=== PATIENT | female | born 1960 | race American Indian/Alaskan Native ===

== ENCOUNTER 2016-10-30 17:39 | Inpatient (IN) | payer OTHER ==
[2016-10-30] MEDS ORDERED: ZOFRAN ODT PO ONE (18:14)
--- NOTE | 2016-10-30 18:14 | Emergency Department Report ---
Chief Complaint: Nausea/Vomiting/Diarrhea Stated Complaint: POSS FOOD POISONING Time Seen by Provider: 10/30/16 18:09 - HPI History of Present Illness: PT c/o n/v/d for two days. Pt states she thinks has food poisoning. - ROS Review of Systems: + n/v/d + abd pain - Exam Physical Exam: pt is tachycardic pt has LUQ and RUQ tenderness to abd abd is soft MSE screening note: Focused history and physical exam performed. Due to findings the following was ordered: labs ED Disposition for MSE Condition: Stable
[2016-10-30 18:37] LABS: Basophils % (Auto) 0.2 % (0.0-1.8); Hematocrit 45.9 % (30.3-42.9); Mean Corpuscular HGB Conc 33 % (30-34); Mean Corpuscular Hemoglobin 27 pg (28-32); Mean Corpuscular Volume 83 fl (79-97); Platelet Count 396 K/mm3 (140-440); Red Blood Count 5.52 M/mm3 (3.65-5.03); Red Cell Distribution Width 15.5 % (13.2-15.2); White Blood Count 10.6 K/mm3 (4.5-11.0)
[2016-10-30 18:55] LABS: Albumin 3.6 g/dL (3.9-5); Albumin/Globulin Ratio 0.9 %; BUN/Creatinine Ratio 18.09; Bilirubin,Total 0.7 mg/dL (0.1-1.2); Calcium 8.5 mg/dL (8.4-10.2); Total Protein 7.4 g/dL (6.3-8.2)
[2016-10-30 18:56] LABS: Chloride 97.7 mmol/L (98-107); Potassium 3.3 mmol/L (3.6-5.0)
[2016-10-31] MEDS ORDERED: MORPHINE IV ONE (06:21)
[2016-10-31] MEDS ORDERED: NACL 0.9% 1000 ML 1,000 ML IV ONE (06:21)
[2016-10-31] MEDS ORDERED: ZOFRAN IV ONE (06:21)
--- NOTE | 2016-10-31 06:59 | Cat Scan Report ---
FINAL REPORT EXAM: CT ABDOMEN PELVIS WO CON HISTORY: abd pain ,n,v,d TECHNIQUE: Noncontrast CT of the abdomen and pelvis performed. No IV or gastrointestinal contrast was administered. Coronal and sagittal reformatted images were obtained. PRIORS: None. FINDINGS: There is some dependent atelectasis at the lung bases. There is cholelithiasis. There is a 3.4 cm low-density left renal lesion which is likely a cyst. There is a 1.2 cm right adrenal gland nodule, likely a benign adenoma. Within the limitations of a non-enhanced study, the visualized liver, spleen, pancreas, left adrenal gland and right kidney demonstrate no significant abnormalities. There is no abdominal aortic aneurysm. There is no evidence of intestinal obstruction. The appendix is normal. There is descending colon abnormal wall thickening and pericolonic inflammation. This is consistent with colitis. There is no abscess or free air seen.. There is an enlarged fibroid uterus. The bladder is unremarkable. IMPRESSION: Colitis involving the descending colon. Cholelithiasis. Enlarged fibroid uterus. 12 mm right adrenal gland nodule is probably a benign adenoma.
[2016-10-31 07:01] LABS: Bilirubin,Urine NEG (Negative); Blood,Urine SM (Negative); Ketones,Urine NEG (Negative); Leukocyte Esterase,Urine NEG (Negative); Mucus,Urine FEW /HPF; Nitrite,Urine NEG (Negative); Protein,Urine <15 mg/dL mg/dL (Negative); Urobilinogen,Urine < 2.0 mg/dL (<2.0)
--- NOTE | 2016-10-31 07:06 | Emergency Department Report ---
ED N/V/D HPI - General Chief complaint: Nausea/Vomiting/Diarrhea Stated complaint: POSS FOOD POISONING Time Seen by Provider: 10/30/16 18:09 Source: patient, family Mode of arrival: Wheelchair Limitations: No Limitations - History of Present Illness Initial comments: 56-year-old female with a past medical history of hypertension in the past (not currently on BP medication) presents to the hospital complains of nausea, vomiting, diarrhea, and abdominal pain 2 days. On average patient has 2 episodes of vomiting per day and much more frequent episodes of diarrhea. It just started after eating a chili dog. Patient completed generalized abdominal pain but greatest in the upper abdomen. Previous history of 4. Denies fever, recent travel, sick contacts or previous history of renal disease. - Related Data Previous Rx's Medication Instructions Recorded Last Taken Type amLODIPine [Norvasc] 5 mg PO DAILY #30 tab 05/12/14 Unknown Rx Allergies Allergy/AdvReac Type Severity Reaction Status Date / Time No Known Allergies Allergy Verified 05/11/14 23:56 ED Review of Systems ROS: Stated complaint: POSS FOOD POISONING Other details as noted in HPI Comment: All other systems reviewed and negative Other: Constitutional: No fevers chills Eyes: No eye pain visual changes ENT: No ear pain or throat pain Neck: Denies pain Respiratory: Denies cough wheezing shortness of breath Cardiovascular: Denies chest pain, palpitations, syncope GI: As per HPI : Denies dysuria Musculoskeletal: Denies back pain Skin: Denies rash, lesions, erythema Neurologic: Denies headache, numbness, weakness Psychiatric: Denies suicidal ideation, hallucinations ED Past Medical Hx - Past Medical History Previous Medical History?: Yes Hx Hypertension: Yes - Surgical History Past Surgical History?: Yes Additional Surgical History: x4 - Social History Smoking Status: Never Smoker Substance Use Type: None - Medications Home Medications: Home Medications Medication Instructions Recorded Confirmed Last Taken Type amLODIPine [Norvasc] 5 mg PO DAILY #30 tab 05/12/14 Unknown Rx ED Physical Exam - General Limitations: No Limitations - Other Other exam information: General: No limitations, patient is alert in no acute distress Head exam: Atraumatic, normocephalic Eyes exam: Normal appearance, nonicteric sclera ENT: Moist mucous membrane, normal oropharynx Neck exam: Normal inspection, full range of motion Respiratory exam: Clear to auscultation bilateral, no wheezes, rales, crackles Cardiovascular: Mild tachycardia, regular rhythm Abdomen: Soft, nondistended, maximum tenderness to left upper quadrant, left lower quadrant whenever generalized tenderness with increased bowel sounds Extremity: Full range of motion normal inspection no deformity Back: Normal Inspection, full range of motion, no tenderness Neurologic: Alert, oriented x3, cranial nerves intact, no motor or sensory deficit Psychiatric: normal affect, normal mood Skin: Warm, dry, intact ED Course Vital Signs 10/30/16 10/30/16 18:12 20:11 Temperature 97.5 F L 97.5 F L Pulse Rate 120 H 107 H Respiratory 16 16 Rate Blood Pressure 116/71 111/74 O2 Sat by Pulse 96 97 Oximetry - Reevaluation(s) Reevaluation #1: 10/31/16 07:08 Meds received in the ED: Normal saline 1 L Zofran 4 mg Morphine 4 mg By mouth potassium 10/31/16 07:15 Levaquin 750mg po flagyl 500mg Po 10/31/16 07:15 No vomiting in the ED - Consultations Consultation #1: 10/31/16 07:[address] 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0 H (0.0-0.8) K/mm3 Eos # 0.0 (0.0-0.4) K/mm3 Baso # 0.0 (0.0-0.1) K/mm3 Seg Neutrophils % 81.7 H (40.0-70.0) % Seg Neutrophils # 8.7 H (1.8-7.7) K/mm3 Sodium 139 (137-145) mmol/L Potassium 3.3 L (3.6-5.0) mmol/L Chloride 97.7 L (98-107) mmol/L Carbon Dioxide 21 L (22-30) mmol/L Anion Gap 24 mmol/L BUN 38 H (7-17) mg/dL Creatinine 2.1 H (0.7-1.2) mg/dL Estimated GFR 30 ml/min BUN/Creatinine Ratio 18.09 % Glucose 262 H (65-100) mg/dL Hemoglobin A1c 5.9 (4-6) % Calcium 8.5 (8.4-10.2) mg/dL Total Bilirubin 0.70 (0.1-1.2) mg/dL AST 12 (5-40) units/L ALT 11 (7-56) units/L Alkaline Phosphatase 57 (35-129) units/L Total Protein 7.4 (6.3-8.2) g/dL Albumin 3.6 L (3.9-5) g/dL Albumin/Globulin Ratio 0.9 % Lipase 10 L (13-60) units/L Urine Color (Yellow) Urine Turbidity (Clear) Urine pH (5.0-7.0) Ur Specific [place] (1.003-1.030) Urine Protein (Negative) mg/dL Urine Glucose (UA) (Negative) mg/dL Urine Ketones (Negative) mg/dL Urine Blood (Negative) Urine Nitrite (Negative) Urine Bilirubin (Negative) Urine Urobilinogen (<2.0) mg/dL Ur Leukocyte Esterase (Negative) Urine WBC (Auto) (0.0-6.0) /HPF Urine RBC (Auto) (0.0-6.0) /HPF U Epithel Cells (Auto) (0-13.0) /HPF Hyaline Casts /LPF Urine Mucus /HPF 10/31/ Range/Units 06:46 WBC (4.5-11.0) K/mm3 RBC (3.65-5.03) M/mm3 Hgb (10.1-14.3) gm/dl Hct (30.3-42.9) % MCV (79-97) fl MCH (28-32) pg MCHC (30-34) % RDW (13.2-15.2) % Plt Count (140-440) K/mm3 Lymph % (Auto) (13.4-35.0) % Crisp % (Auto) (0.0-7.3) % Eos % (Auto) (0.0-4.3) % Baso % (Auto) (0.0-1.8) % Lymph # (1.2-5.4) K/mm3 Crisp # (0.0-0.8) K/mm3 Eos # (0.0-0.4) K/mm3 Baso # (0.0-0.1) K/mm3 Seg Neutrophils % (40.0-70.0) % Seg Neutrophils # (1.8-7.7) K/mm3 Sodium (137-145) mmol/L Potassium (3.6-5.0) mmol/L Chloride (98-107) mmol/L Carbon Dioxide (22-30) mmol/L Anion Gap mmol/L BUN (7-17) mg/dL Creatinine (0.7-1.2) mg/dL Estimated GFR ml/min BUN/Creatinine Ratio % Glucose (65-100) mg/dL Hemoglobin A1c (4-6) % Calcium (8.4-10.2) mg/dL Total Bilirubin (0.1-1.2) mg/dL AST (5-40) units/L ALT (7-56) units/L Alkaline Phosphatase (35-129) units/L Total Protein (6.3-8.2) g/dL Albumin (3.9-5) g/dL Albumin/Globulin Ratio % Lipase (13-60) units/L Urine Color Yellow (Yellow) Urine Turbidity Clear (Clear) Urine pH 5.0 (5.0-7.0) Ur Specific [place] 1.014 (1.003-1.030) Urine Protein <15 mg/dl (Negative) mg/dL Urine Glucose (UA) Neg (Negative) mg/dL Urine Ketones Neg (Negative) mg/dL Urine Blood Sm (Negative) Urine Nitrite Neg (Negative) Urine Bilirubin Neg (Negative) Urine Urobilinogen < 2.0 (<2.0) mg/dL Ur Leukocyte Esterase Neg (Negative) Urine WBC (Auto) 5.0 (0.0-6.0) /HPF Urine RBC (Auto) 6.0 (0.0-6.0) /HPF U Epithel Cells (Auto) 3.0 (0-13.0) /HPF Hyaline Casts 9 /LPF Urine Mucus Few /HPF - Radiology Data Radiology results: report reviewed (CT abdomen and pelvis noncontrast: Colitis involving the descending colon. Cholelithiasis, enlarged fibroid uterus. 12 mm right adrenal gland nodule probably benign adenoma) - Medical Decision Making Patient be admitted to the hospital for treatment for colitis. Antibiotics initiated. Patient also has acute renal insufficiency likely secondary to dehydration. Nephrology has been consulted. Hospitalist informed. - Differential Diagnosis dehydration, colitis, gastroenteritis, food poising Critical Care Time: No Critical care attestation.: If time is entered above; I have spent that time in minutes in the direct care of this critically ill patient, excluding procedure time. ED Disposition Clinical Impression: Colitis, Vomiting, Acute renal insufficiency, Dehydration, Hypokalemia Disposition: -09 OP ADMIT IP TO THIS HOSP Is pt being admited?: Yes Condition: Stable Time of Disposition: 07:17 (Dr. Hernandez/ hospitalist)
[2016-10-31] MEDS ORDERED: K-DUR PO ONE (07:09)
[2016-10-31] MEDS ORDERED: FLAGYL PO ONE (07:14)
[2016-10-31] MEDS ORDERED: LEVAQUIN PO ONE (07:14)
--- NOTE | 2016-10-31 07:30 | Admit Criteria Form ---
Admission Criteria Documentation: GASTROENTEROLOGY GRG Clinical Indications for Admission to Inpatient Care (Place 'X' for any and all applicable criteria): Hospital admission is needed for appropriate care of the patient because of ANY ONE of the following: [ ]I. Hemoperitoneum(7) [ ]II. Ascites requiring acute treatment indicated by ANY ONE of the following( 8)(9): [ ]a) Hemodynamic instability remaining after emergency or observation level care (as appropriate) [ ]b) Peritoneal signs present (eg, abdominal rigidity, rebound tenderness, absent bowel sounds) [ ]c) Tachypnea, Hypoxemia, or other respiratory symptoms remain after emergency or observation level care (as appropriate) [ ]d) Suspected infected ascites as indicated by ANY ONE of the following: [ ]i) Temperature greater than 100 degrees F (37.8 degrees C) [ ]ii) Abdominal pain or tenderness not relieved by paracentesis [ ]iii) Systemic signs of infection (eg, elevated WBC count, fever) [ ]iv) Ascitic fluid analysis consistent with infection ( eg, elevated WBC count): [ ]v) Vital sign abnormality [ ]III. Suspected acute intra-abdominal process indicated by ANY ONE of the following(1)(2)(3)(4)(5): [ ]a) Hemodynamic instability [ ]b) Peritoneal signs present (eg, abdominal rigidity, rebound tenderness, absent bowel sounds) [ ]c) Bowel obstruction suspected (eg, severe vomiting, abdominal distension) [ ]d) Suspected mesenteric ischemia or ischemic colitis(6) [ ]e) Other signs or symptoms of acute abdominal disease (eg, severe pain, free air): [ ]IV. Severe liver disease indicated by ANY ONE of the following(8)(9)(10)(11)( 12)(13)(14): [ ]a) Acute hepatitis (eg, transaminase level greater than 1000 IU/L) [ ]b) Acute elevation of prothrombin time to more than 50% above normal or INR greater than 1.5 [ ]c) Bilirubin greater than 20 mg/dL (342 micromoles/L) (15) [ ]d) New-onset or worsening hepatic encephalopathy [ ]e) Acute liver necrosis [ ]f) Vomiting or dehydration that is severe of persistent [ ]g) Hemodynamic instability due to liver disease [ ]h) Acute renal failure [ ]i) Hepatic abscess [ ]j) Dehydration that is severe or persistent [ ]k) Hepatic hydrothorax(21) [ ]l) Other indications of severe liver disease (eg, persistent fever , ingestion of hepatotoxin) [X ]V. Severe diarrhea indicated by ANY ONE of the following(17)(18)(19)(20)(21) (22)(23): [ ]a) High fever or other high-risk infection situation [ ]b) Intractable bloody diarrhea (eg, more than 6 bloody stools per day) [ ]c) Suspected Clostridium difficile-associated diarrhea(24) [ ]d) Change in mental status that persists after emergency or observation level care (as appropriate) [ ]e) Severe dehydration (eg, greater than 9% loss of body weight in children) [ ]f) Inability to maintain hydration [ ]g) Peritoneal signs present (eg, abdominal rigidity, rebound tenderness, absent bowel sounds) [ ]h) Abdominal ischemia suspected(6) [ ]i) Hemodynamic instability that persists after emergency or observation level care (as appropriate) [ ]j) Severe electrolyte abnormalities requiring inpatient care [X ]k) Acute renal failure [ ]. Suspected toxic megacolon(5)(6) [ ]VII.Severe dysphagia indicated by ANY ONE of the following(25)(26): [ ]a) Suspected esophageal perforation or fistula(27) [ ]b) Suspected cause that requires inpatient care (eg, caustic ingestion, severe esophagitis) (28) [ ]c) Severe dehydration (eg, greater than 9% loss of body weight in children) [ ]d) Inability to manage secretions or maintain hydration [ ]e) Hemodynamic instability that persists after emergency or observation level care (as appropriate) [ ]f) Severe electrolyte abnormalities requiring inpatient care [ ]g) Acute renal failure [ ]VIII.Vomiting and ANY ONE of the following (29)(30)(31)(32): [ ]a) High fever or other high-risk infection situation [ ]b) Change in mental status that persists after emergency or observation level care (as appropriate) [ ]c) Severe dehydration (e.g., greater than 9% loss of body weight in children) [ ]d) Peritoneal signs present (e.g., abdominal rigidity, rebound tenderness, absent bowel sounds) [ ]e) Hemodynamic instability that persists after emergency or observation level care (as appropriate) [ ]f) Severe electrolyte abnormalities requiring inpatient care [ ]g) Acute renal failure [ ]h) Bowel obstruction suspected (e.g., severe vomiting, abdominal distension) [ ]i) Vomiting that is severe or persistent after medical treatment [ ]IX. Significant dehydration indicated by ANY ONE of the following(23)(24)(25) [ ]a) Clinical findings of severe dehydration indicated by ANY ONE of the following: [ ]i) Acute loss of weight from baseline (5% of body weight in adults, 9% in pediatric patients) [ ]ii) Hemodynamic instability [ ]iii) Acute renal failure [ ]iv) Serum sodium greater than 150 mEq/L (mmol/L) [ ]b) Dehydration that is persistent indicated by ALL of the following: [ ]i) Oral rehydration therapy not tolerated or insufficient to adequately correct dehydration [ ]ii) Appropriate intravenous treatment (eg, fluids) does not readily correct dehydration hours of (ie, after 12 to 24 of treatment) [ ]X. Gastroparesis and ANY ONE of the following(37)(38)(39): [ ]a) Dehydration that is severe or persistent [ ]b) Severe electrolyte abnormalities requiring inpatient care [ ]c) Acute renal failure [ ]d) Vomiting that is severe or persistent [ ]XI. Complications of transplanted liver indicated by ANY ONE of the following (40)(41): [ ]a) Acute graft rejection requiring inpatient management (eg, intravenous immunosuppression)(42) [ ]b) Failure of transplanted liver as indicated by ANY ONE of the following: [ ]i) Acute hepatitis (eg, transaminase level greater than 1000 International Units per liter (IU/L)) [ ]ii) Acute elevation of prothrombin time to more than 50% above baseline or INR greater than 1.5 [ ]iii) Bilirubin greater than 20 mg/dL (342 micromoles/L) [ ]iv) New-onset or worsening hepatic encephalopathy [ ]v) Acute elevation of serum ammonia level (eg, greater than 210 mcg/dL (150 micromoles/L)) [ ]vi) Acute liver necrosis [ ]c) Infection requiring inpatient management (eg, Hemodynamic instability, need for intravenous antimicrobial treatment)(43)(44)(45)(46)(47)(48)(49)(50) [ ]d) Other complication of transplanted liver (eg, thrombosis, autoimmune hepatitis, variceal bleeding) requiring inpatient management(51)(52) [ ]XII Complications of transplanted pancreas indicated by ANY ONE of the following(53): [ ]a) Acute graft rejection requiring inpatient management (eg, intravenous immunosuppression)(42)(54) [ ]b) Failure of transplanted pancreas as indicated by ANY ONE of the following: [ ]i) Serum amylase greater than 3 times the upper limit of normal or baseline [ ]ii) Serum lipase greater than 3 times the upper limit of normal or baseline [ ]iii) Imaging findings consistent with pancreatic inflammation or necrosis [ ]c) Infection requiring inpatient management (eg, Hemodynamic instability, need for intravenous antimicrobial treatment)(43)(44)(45)(46)(47)(48)(49)(50) [ ]d) Other complication of transplanted liver (eg, thrombosis, autoimmune hepatitis, variceal bleeding) requiring inpatient management(51)(52) [ ]X. Gastroenterology condition and ALL of the following: [ ]a) Symptom or finding for which emergency and observation care have failed or are not considered appropriate (Also use General Criteria: Observation Care as appropriate) [ ]b) Presence of ANY ONE of the following: [ ]i) A General Admission Criteria [ ]ii) A Pediatric General Admission Criteria. The original [facility] [employer] content created by [facility] [employer] has been revised. The portions of the content which have been revised are identified through the use of italic text or in bold,and [facility] has neither reviewed nor approved the modified material. All other unmodified content is copyright [facility] [employer]. Please see references footnoted in the original [facility] edition 2016 Admission Criteria Met: Yes
[2016-10-31] MEDS ORDERED: ZOFRAN IV PRN ×2 (11:25→11:33)
[2016-10-31] MEDS ORDERED: DULCOLAX PR PRN (11:25)
[2016-10-31] MEDS ORDERED: MILK OF MAGNESIA PO PRN (11:25)
--- NOTE | 2016-10-31 11:50 | History and Physical Report ---
History of Present Illness Date of examination: 10/31/16 Date of admission: 10/31/2016 Chief complaint: Abdominal pain, Nausea, Vomiting and diarrhea History of present illness: Patient is a 56 year old female with past medical history of hypertension in the past but currently she is not on BP medication.patient presented to the ED after two days of severe abdominal pain, nausea, vomiting, and diarrhea. She stated that on Friday evening after being in her usual state of health she began to experience sharp LUQ and RUQ abdominal pain that does not radiated . The pain was started after eating a chili dog and she did not take any medications to alleviate the discomfort. The abdominal pain was quickly followed by two episodes of partial diarrhea and soft stool that was trejo in color with no signs of blood. Her abdominal pain continued and she developed nausea and then vomited multiple times that evening before going to sleep. Overnight her abdominal pain worsened and she stayed in bed for most of the day on Friday. She had 2 episode of vomiting in all day but multiple episodes of diarrhea that day and did not eat anything for fear of vomiting. She was able to drink water and keep it down. By late Friday night, her pain had intensified to a 10/10 and she can take it no more and decided to come to ED. Patient denies fever, recent travel,sick contacts or previous history of renal disease Past History Past Medical History: hypertension Past Surgical History: (X4) Social history: no significant social history Family history: hypertension Medications and Allergies Allergies Allergy/AdvReac Type Severity Reaction Status Date / Time No Known Allergies Allergy Verified 05/11/14 23:56 Home Medications Medication Instructions Recorded Confirmed Last Taken Type No Known Home Medications [No 10/31/16 10/31/16 Unknown History Reported Home Medications] Active Meds: Active Medications Acetaminophen (Tylenol) 650 mg PO Q4H PRN PRN Reason: Pain MILD(1-3)/Fever >100.5/[facility] Bisacodyl (Dulcolax) 10 mg OR QDAY PRN PRN Reason: Constipation unrelieved by MOM Dextrose/Sodium Chloride (D5ns) 1,000 mls @ 125 mls/hr IV DIRECT TORO Levofloxacin/Dextrose (Levaquin 750mg/150ml) 750 mg in 150 mls @ 100 mls/hr IV Q24HR [facility] PRN Reason: Protocol Magnesium Hydroxide (Milk Of Magnesia) 30 ml PO Q4H PRN PRN Reason: Constipation Morphine Sulfate (Morphine) 2 mg IV Q4H PRN PRN Reason: Pain, Moderate (4-6) Ondansetron HCl (Zofran) 4 mg IV Q8H PRN PRN Reason: N/V unrelieved by Reglan Ondansetron HCl (Zofran) 4 mg IV Q4H PRN PRN Reason: Nausea And Vomiting Review of Systems Constitutional: fatigue, weakness, no weight loss, no weight gain, no fever, no chills, no sweats Ears, nose, mouth and throat: no ear pain, no ear discharge, no tinnitis, no decreased hearing Breasts: normal Cardiovascular: no chest pain, no orthopnea, no palpitations, no rapid/ irregular heart beat, no edema Respiratory: no cough, no cough with sputum, no excessive sputum, no hemoptysis Gastrointestinal: nausea, vomiting, diarrhea, change in bowel habits, loss of appetite Genitourinary Female: no dyspareunia, no dysmenorrhea, no pelvic pain, no flank pain, no dysuria, no urinary frequency Musculoskeletal: no neck pain, no shooting arm pain Integumentary: no rash, no pruritis, no redness, no sores Neurological: no head injury, no transient paralysis Psychiatric: no anxiety, no memory loss, no change in sleep habits Endocrine: no cold intolerance, no heat intolerance, no polyphagia Hematologic/Lymphatic: no easy bruising, no easy bleeding Allergic/Immunologic: no urticaria, no wheezing Exam - Constitutional Vitals: Temp Pulse Resp BP Pulse Ox 97.5 F L 107 H 16 111/74 97 10/30/16 20:11 10/30/16 20:11 10/30/16 20:11 10/30/16 20:11 10/30/16 20:11 General appearance: Present: no acute distress, well-nourished - EENT Eyes: Present: PERRL, EOM intact ENT: hearing intact, clear oral mucosa, dentition normal - Neck Neck: Present: supple, normal ROM - Respiratory Respiratory effort: normal - Cardiovascular Heart Sounds: Present: S1 & S2. Absent: rub, click - Extremities Extremities: pulses symmetrical, No edema Peripheral Pulses: within normal limits - Abdominal General gastrointestinal: Present: soft, tender (LUQ and RUQ) Localized gastrointestinal: guarding: RUQ, LUQ Female genitourinary: Present: normal - Rectal Rectal Exam: deferred - Integumentary Integumentary: Present: warm, dry - Musculoskeletal Musculoskeletal: gait normal, strength equal bilaterally - Psychiatric Psychiatric: appropriate mood/affect, intact judgment & insight - Neurologic Neurologic: CNII-XII intact, moves all extremities Results - Labs CBC & Chem 7: 10/30/16 18:24 11/01/16 08:31 Labs: Laboratory Last Values WBC 10.6 K/mm3 (4.5-11.0) 10/30/16 18:24 RBC 5.52 M/mm3 (3.65-5.03) H 10/30/16 18:24 Hgb 15.0 gm/dl (10.1-14.3) H 10/30/16 18:24 Hct 45.9 % (30.3-42.9) H 10/30/16 18:24 MCV 83 fl (79-97) 10/30/16 18:24 MCH 27 pg (28-32) L 10/30/16 18:24 MCHC 33 % (30-34) 10/30/16 18:24 RDW 15.5 % (13.2-15.2) H 10/30/16 18:24 Plt Count 396 K/mm3 (140-440) 10/30/16 18:24 Lymph % (Auto) 8.8 % (13.4-35.0) L 10/30/16 18:24 [place] % (Auto) 9.3 % (0.0-7.3) H 10/30/16 18:24 Eos % (Auto) 0.0 % (0.0-4.3) 10/30/16 18:24 Baso % (Auto) 0.2 % (0.0-1.8) 10/30/16 18:24 Lymph # 0.9 K/mm3 (1.2-5.4) L 10/30/16 18:24 [place] # 1.0 K/mm3 (0.0-0.8) H 10/30/16 18:24 Eos # 0.0 K/mm3 (0.0-0.4) 10/30/16 18:24 Baso # 0.0 K/mm3 (0.0-0.1) 10/30/16 18:24 Seg Neutrophils % 81.7 % (40.0-70.0) H 10/30/16 18:24 Seg Neutrophils # 8.7 K/mm3 (1.8-7.7) H 10/30/16 18:24 Sodium 139 mmol/L (137-145) 10/30/16 18:24 Potassium 3.3 mmol/L (3.6-5.0) L 10/30/16 18:24 Chloride 97.7 mmol/L (98-107) L 10/30/16 18:24 Carbon Dioxide 21 mmol/L (22-30) L 10/30/16 18:24 Anion Gap 24 mmol/L 10/30/16 18:24 BUN 38 mg/dL (7-17) H 10/30/16 18:24 Creatinine 2.1 mg/dL (0.7-1.2) H 10/30/16 18:24 Estimated GFR 30 ml/min 10/30/16 18:24 BUN/Creatinine Ratio 18.09 % 10/30/16 18:24 Glucose 262 mg/dL (65-100) H 10/30/16 18:24 Hemoglobin A1c 5.9 % (4-6) 10/30/16 18:24 Calcium 8.5 mg/dL (8.4-10.2) 10/30/16 18:24 Total Bilirubin 0.70 mg/dL (0.1-1.2) 10/30/16 18:24 AST 12 units/L (5-40) 10/30/16 18:24 ALT 11 units/L (7-56) 10/30/16 18:24 Alkaline Phosphatase 57 units/L (35-129) 10/30/16 18:24 Total Protein 7.4 g/dL (6.3-8.2) 10/30/16 18:24 Albumin 3.6 g/dL (3.9-5) L 10/30/16 18:24 Albumin/Globulin Ratio 0.9 % 10/30/16 18:24 Lipase 10 units/L (13-60) L 10/30/16 18:24 Urine Color Yellow (Yellow) 10/31/16 06:46 Urine Turbidity Clear (Clear) 10/31/16 06:46 Urine pH 5.0 (5.0-7.0) 10/31/16 06:46 Ur Specific [place] 1.014 (1.003-1.030) 10/31/16 06:46 Urine Protein <15 mg/dl mg/dL (Negative) 10/31/16 06:46 Urine Glucose (UA) Neg mg/dL (Negative) 10/31/16 06:46 Urine Ketones Neg mg/dL (Negative) 10/31/16 06:46 Urine Blood Sm (Negative) 10/31/16 06:46 Urine Nitrite Neg (Negative) 10/31/16 06:46 Urine Bilirubin Neg (Negative) 10/31/16 06:46 Urine Urobilinogen < 2.0 mg/dL (<2.0) 10/31/16 06:46 Ur Leukocyte Esterase Neg (Negative) 10/31/16 06:46 Urine WBC (Auto) 5.0 /HPF (0.0-6.0) 10/31/16 06:46 Urine RBC (Auto) 6.0 /HPF (0.0-6.0) 10/31/16 06:46 U Epithel Cells (Auto) 3.0 /HPF (0-13.0) 10/31/16 06:46 Hyaline Casts 9 /LPF 10/31/16 06:46 Urine Mucus Few /HPF 10/31/16 06:46 - Imaging and Cardiology CT scan - abdomen: report reviewed (Colitis involving the descending colon, Cholelithasis, Enlarged fibroid utres. !2 mm right adrenal gland nodule is probably a benign adenoma.) Assessment and Plan Assessment and plan: ASSESSMENT/PLAN 1. Cholelithiasis We will admit to MED/SURG floor patient C/O Right upper quadrant abdominal pain Abdominal CT reveal that Cholelithiasis Patient will be NPO Pain controlled with Morphine General surgery consulted IV fluid hydration 2. Colitis Abdominal CT reveal that Cholelithiasis We will initiate emperic treatment with levaquin IV and flagyl IV 3. Acute Renal Failure Elevated BUN and Creatinine Nephrology consulted 4. Dehydration Elevated BUN and Creatinine also elevated H&H IVF hydration D5 1/2NS infusing at 125 cc/hr We will repeat BMP 5.Hypokalemia Potassium replaced in the ED Closely monitor electrolytes
[2016-10-31] MEDS ORDERED: LEVAQUIN 750MG/150ML 750 MG/150 ML BAG IV SCH ×2 (12:00)
[2016-10-31] MEDS: MORPHINE IV PRN ×2 (15:42→21:31)
--- NOTE | 2016-10-31 15:57 | Consultation ---
History of Present Illness - Reason for Consult Consult date: 10/31/16 acute renal failure Requesting physician: CARMELITA WINSTON - History of Present Illness Patient is a 56 year old female with past medical history of hypertension in the past but currently she is not on BP medication.patient presented to the ED after two days of severe abdominal pain, nausea, vomiting, and diarrhea. She stated that on Friday evening after being in her usual state of health she began to experience sharp LUQ and RUQ abdominal pain that does not radiated . The pain was started after eating a chili dog and she did not take any medications to alleviate the discomfort. The abdominal pain was quickly followed by two episodes of partial diarrhea and soft stool that was trejo in color with no signs of blood. Her abdominal pain continued and she developed nausea and then vomited multiple times that evening before going to sleep. Overnight her abdominal pain worsened and she stayed in bed for most of the day on Friday. She had 2 episode of vomiting in all day but multiple episodes of diarrhea that day and did not eat anything for fear of vomiting. She was able to drink water and keep it down. By late Friday night, her pain had intensified to a 10/10 and she can take it no more and decided to the ED. Patient denies fever, recent travel,sick contacts or previous history of renal disease . Renal consult is requested because of elevated serum creatinine. Patient denies any prior knowledge of renal dysfunction. She denies any significant intake and nonsteroidals or [place] 2 inhibitors. No history of gross hematuria or frequent urinary tract infections Past History Past Medical History: hypertension Past Surgical History: (X4) Social history: no significant social history Family history: hypertension Medications and Allergies Allergies Allergy/AdvReac Type Severity Reaction Status Date / Time No Known Allergies Allergy Verified 05/11/14 23:56 Home Medications Medication Instructions Recorded Confirmed Last Taken Type No Known Home Medications [No 10/31/16 10/31/16 Unknown History Reported Home Medications] Active Meds: Active Medications Acetaminophen (Tylenol) 650 mg PO Q4H PRN PRN Reason: Pain MILD(1-3)/Fever >100.5/[facility] Bisacodyl (Dulcolax) 10 mg HI QDAY PRN PRN Reason: Constipation unrelieved by MOM Dextrose/Sodium Chloride (D5ns) 1,000 mls @ 125 mls/hr IV DIRECT TORO Levofloxacin/Dextrose (Levaquin 750mg/150ml) 750 mg in 150 mls @ 100 mls/hr IV Q48HR TORO Last Admin: 10/31/16 12:03 Dose: 100 mls/hr Metronidazole (Flagyl 500 Mg/100 Ml) 500 mg in 100 mls @ 100 mls/hr IV Q8HR [facility] Magnesium Hydroxide (Milk Of Magnesia) 30 ml PO Q4H PRN PRN Reason: Constipation Morphine Sulfate (Morphine) 2 mg IV Q4H PRN PRN Reason: Pain, Moderate (4-6) Last Admin: 10/31/16 15:42 Dose: 2 mg Ondansetron HCl (Zofran) 4 mg IV Q8H PRN PRN Reason: N/V unrelieved by Reglan Ondansetron HCl (Zofran) 4 mg IV Q4H PRN PRN Reason: Nausea And Vomiting Review of Systems All systems: negative (negative except as noted above) Exam - Vital Signs Vital signs: Vital Signs Temp Pulse Resp BP Pulse Ox 97.5 F L 120 H 16 116/71 96 10/30/16 18:12 10/30/16 18:12 10/30/16 18:12 10/30/16 18:12 10/30/16 18:12 - General Appearance General appearance: well-developed, well-nourished, appears stated age, obese EENT: PERRL, mucous membranes moist Neck: Present: neck supple, trachea midline Respiratory: Clear to Ascultation Heart: regular, normal heart rate Gastrointestinal: Present: normoactive bowel sounds, tenderness (mild tenderness especially in the left lower quadrant area. No rebound or guarding) Integumentary: no rash, other (no edema) Results - Lab Results 10/30/16 18:24 10/30/16 18:24 Most recent lab results Calcium 8.5 mg/dL (8.4-10.2) 10/30/16 18:24 Assessment and Plan Impression * Acute kidney injury. Most likely prerenal * Hypokalemia * History of hypertension * Obesity Recommendations * Shall check a UA as well as a fractional excretion of sodium * Renal ultrasound to assess kidney size and echogenicity * If patient's urine sediment is active, she will need additional workup * IV hydration with isotonic fluid * Replace potassium. Shall also check a magnesium level * Monitor patient's fluid status and electrolytes closely * Avoid nephrotoxins * Thank you very much for the consultation. Shall follow along with you
[2016-10-31] MEDS: D5NS 1,000 ML IV SCH (20:06)
[2016-10-31] MEDS: FLAGYL 500 MG/100 ML 500 MG/100 ML BAG IV SCH (21:22)
[2016-11-01] MEDS: FLAGYL 500 MG/100 ML 500 MG/100 ML BAG IV SCH ×3 (05:18→23:52)
[2016-11-01] MEDS: D5NS 1,000 ML IV SCH (05:18)
--- NOTE | 2016-11-01 09:06 | Ultrasound Report ---
ULTRASOUND RENAL INDICATION: CHANDAN. COMPARISON: CT performed earlier today. FINDINGS: Renal sonography suggests top normal/borderline increased renal cortical echogenicity. Grossly preserved contours. No hydronephrosis. RIGHT KIDNEY measures 12 x 5.9 x 4.5 cm with cortical thickness of 1.5 cm. A small 0.8 cm cortical cyst superiorly, images 5 and 6 demonstrates a small nonspecific 4 mm peripheral nodular non-shadowing echogenicity. LEFT KIDNEY estimated at 9.7 x 6 x 6 cm with cortical thickness of 1.5 cm. Possibly 2 cortical cysts, the smaller approximately 1.5 cm while the larger is 3.2 x 2.5 cm on image 23 with partial intrinsic septation and a small nonspecific peripheral non-shadowing echogenicity. URINARY BLADDER within normal limits, in so far assessed. CONCLUSION: No acute renal abnormality with small bilateral renal cysts and subtle underlying medical renal disease sonographically, as described. Please correlate. Thank you for the opportunity to participate in this patient's care.
[2016-11-01 09:43] LABS: Anion Gap 15 mmol/L; Blood Urea Nitrogen 21 mg/dL (7-17); Calcium 7.9 mg/dL (8.4-10.2); Carbon Dioxide 27 mmol/L (22-30); Chloride 104.2 mmol/L (98-107); Glucose 115 mg/dL (65-100); Potassium 4.3 mmol/L (3.6-5.0); Sodium 142 mmol/L (137-145)
[2016-11-01] MEDS: KCL 10MEQ/100ML 10 MEQ/100 ML BAG IV SCH ×2 (10:37→12:06)
--- NOTE | 2016-11-01 11:13 | Progress Note ---
Assessment and Plan Assessment and plan: Patient is a 56-year-old woman history of hypertension not on medication presents with nausea vomiting abdominal pain and diarrhea. CT abdomen and pelvis without contrast because creatinine is 2.1 shows a light is involving the descending colon, cholelithiasis without mention of acute cholecystitis, enlarged fibroid uterus, 12 mm right adrenal gland nodule is probably a benign adenoma. Renal ultrasound shows no acute abnormality, chronic medical renal disease. Creatinine was 2.1, blood glucose 265 and a potassium of 3.3. -Acute descending colitis: Bowel rest, IV antibiotics, IV fluids -Acute renal failure, vasomotor nephropathy, present on admission: IV fluids, evaluated by nephrology -Uncontrolled diabetes mellitus: Add sliding scale -Cholelithiasis, asymptomatic: medical management -DVT prophylaxis: add sq heparin History Interval history: Patient seen and examined. Follow up on abdominal pain, nausea vomiting diarrhea. Overnight uneventful. No cp, sob, n/v or severe headaches. Imaging, old records, testing, labs, nursing notes reviewed. Hospitalist Physical - Physical exam Narrative exam: GEN: WDWN, NAD, AWAKE, ALERT, ORIENTATED x 3 HEENT: NCAT, PERRL, EOMI, OP CLEAR NECK: SUPPLE, NO THYROMEGALY, NO JVD, NO LAD CVS: RRR, NORMAL S1S2 LUNGS/CHEST: CTA B, NORMAL CHEST EXPANSION B, GOOD AIR ENTRY B ABD: SOFT, diffuse tenderness nondistended GBS, NO REBOUND OR GUARDING EXT/SKIN: NO SIGNIFICANT EDEMA OR RASH MSK: FROM X 4 EXTREMITIES NEURO: CN 2-12 GROSSLY INTACT, NO FOCAL DEFICITS PSY: CALM - Constitutional Vitals: Temp Pulse Resp BP Pulse Ox 99.3 F 84 22 126/80 95 11/01/16 08:22 11/01/16 08:22 11/01/16 08:22 11/01/16 08:22 11/01/16 08:22 General appearance: Present: no acute distress, well-nourished Results - Labs CBC & Chem 7: 10/30/16 18:24 11/01/16 08:31 Labs: Laboratory Last Values WBC 10.6 K/mm3 (4.5-11.0) 10/30/16 18:24 RBC 5.52 M/mm3 (3.65-5.03) H 10/30/16 18:24 Hgb 15.0 gm/dl (10.1-14.3) H 10/30/16 18:24 Hct 45.9 % (30.3-42.9) H 10/30/16 18:24 MCV 83 fl (79-97) 10/30/16 18:24 MCH 27 pg (28-32) L 10/30/16 18:24 MCHC 33 % (30-34) 10/30/16 18:24 RDW 15.5 % (13.2-15.2) H 10/30/16 18:24 Plt Count 396 K/mm3 (140-440) 10/30/16 18:24 Lymph % (Auto) 8.8 % (13.4-35.0) L 10/30/16 18:24 Yell % (Auto) 9.3 % (0.0-7.3) H 10/30/16 18:24 Eos % (Auto) 0.0 % (0.0-4.3) 10/30/16 18:24 Baso % (Auto) 0.2 % (0.0-1.8) 10/30/16 18:24 Lymph # 0.9 K/mm3 (1.2-5.4) L 10/30/16 18:24 Yell # 1.0 K/mm3 (0.0-0.8) H 10/30/16 18:24 Eos # 0.0 K/mm3 (0.0-0.4) 10/30/16 18:24 Baso # 0.0 K/mm3 (0.0-0.1) 10/30/16 18:24 Seg Neutrophils % 81.7 % (40.0-70.0) H 10/30/16 18:24 Seg Neutrophils # 8.7 K/mm3 (1.8-7.7) H 10/30/16 18:24 Sodium 142 mmol/L (137-145) 11/01/16 08:31 Potassium 4.3 mmol/L (3.6-5.0) D 11/01/16 08:31 Chloride 104.2 mmol/L (98-107) 11/01/16 08:31 Carbon Dioxide 27 mmol/L (22-30) 11/01/16 08:31 Anion Gap 15 mmol/L 11/01/16 08:31 BUN 21 mg/dL (7-17) H 11/01/16 08:31 Creatinine 1.0 mg/dL (0.7-1.2) D 11/01/16 08:31 Estimated GFR > 60 ml/min 11/01/16 08:31 BUN/Creatinine Ratio 21.00 % 11/01/16 08:31 Glucose 115 mg/dL (65-100) H 11/01/16 08:31 Hemoglobin A1c 5.9 % (4-6) 10/30/16 18:24 Calcium 7.9 mg/dL (8.4-10.2) L 11/01/16 08:31 Magnesium 3.60 mg/dL (1.7-2.3) H 11/01/16 08:31 Total Bilirubin 0.70 mg/dL (0.1-1.2) 10/30/16 18:24 AST 12 units/L (5-40) 10/30/16 18:24 ALT 11 units/L (7-56) 10/30/16 18:24 Alkaline Phosphatase 57 units/L (35-129) 10/30/16 18:24 Total Protein 7.4 g/dL (6.3-8.2) 10/30/16 18:24 Albumin 3.6 g/dL (3.9-5) L 10/30/16 18:24 Albumin/Globulin Ratio 0.9 % 10/30/16 18:24 Lipase 10 units/L (13-60) L 10/30/16 18:24 Urine Color Yellow (Yellow) 10/31/16 06:46 Urine Turbidity Clear (Clear) 10/31/16 06:46 Urine pH 5.0 (5.0-7.0) 10/31/16 06:46 Ur Specific [place] 1.014 (1.003-1.030) 10/31/16 06:46 Urine Protein <15 mg/dl mg/dL (Negative) 10/31/16 06:46 Urine Glucose (UA) Neg mg/dL (Negative) 10/31/16 06:46 Urine Ketones Neg mg/dL (Negative) 10/31/16 06:46 Urine Blood Sm (Negative) 10/31/16 06:46 Urine Nitrite Neg (Negative) 10/31/16 06:46 Urine Bilirubin Neg (Negative) 10/31/16 06:46 Urine Urobilinogen < 2.0 mg/dL (<2.0) 10/31/16 06:46 Ur Leukocyte Esterase Neg (Negative) 10/31/16 06:46 Urine WBC (Auto) 5.0 /HPF (0.0-6.0) 10/31/16 06:46 Urine RBC (Auto) 6.0 /HPF (0.0-6.0) 10/31/16 06:46 U Epithel Cells (Auto) 3.0 /HPF (0-13.0) 10/31/16 06:46 Hyaline Casts 9 /LPF 10/31/16 06:46 Urine Mucus Few /HPF 10/31/16 06:46
[2016-11-01] MEDS: LEVAQUIN 750MG/150ML 750 MG/150 ML BAG IV SCH (12:00)
--- NOTE | 2016-11-01 14:04 | Progress Note ---
Assessment and Plan Acute kidney injury renal function has normalized Mild metabolic acidosis improved Ultrasonogram shows small cyst in the kidney will need follow-up in the office patient made aware oral doing better from renal standpoint will sign off the patient was advised to make an appointment for follow-up in the office 1-2 weeks after discharge Admitted with nausea vomiting diarrhea and volume loss maintain hydration follow -up on renal function Subjective Interval history: Patient is seen today for follow-up on multiple renal-related issues Events of this hospitalization were noted nausea vomiting better No complaints of any shortness of breath chest pain Vital labs intake output medications were reviewed Physical examination HEENT: Oral mucosa moist Neck: Supple no evidence of hepatomegaly nodular mass or JVD Chest: Clear to auscultation Heart: Regular rate rhythm S1-S2 heard no S3-S4 Abdomen: Soft nontender Extremity: Minimal edema dry skin Neurological: Alert awake follows commands Objective - Vital Signs Vital signs: Vital Signs - 12hr 11/01/16 08:22 Temperature 99.3 F Pulse Rate [ 84 Left Radial] Respiratory 22 Rate Blood Pressure 126/80 [Left Arm] O2 Sat by Pulse 95 Oximetry - Lab 10/30/16 18:24 11/01/16 08:31 Most recent lab results Calcium 7.9 mg/dL (8.4-10.2) L 11/01/16 08:31 Magnesium 3.60 mg/dL (1.7-2.3) H 11/01/16 08:31
[2016-11-01] MEDS: TYLENOL PO PRN (14:50)
[2016-11-01 15:52] LABS: Fractional Sodium Excretion 0.4
--- NOTE | 2016-11-01 20:17 | Progress Note ---
Assessment and Plan Full consult dictated 56 y/o healthy female admitted secondary to LUQ & LLQ abd pain. diarrhea. CT descending colitis Asymptomatic gallstones. Pt states feeling better and abd pain improving surgically stable. continue present care will monitor with you for next couple of days to assure continued clinical improvement from surgical perspective. Selected Entries 11/01/16 11/01/16 11/01/16 08:22 14:55 15:00 Temperature 99.3 F Pulse Rate [ 80 Left Radial] Respiratory 20 Rate Blood Pressure 139/69 [Left Arm] Laboratory Tests 10/30/16 10/30/16 10/30/16 18:24 18:24 18:24 WBC 10.6 Hgb 15.0 H Hct 45.9 H Sodium Potassium Chloride Carbon Dioxide BUN 38 H Creatinine 2.1 H Glucose 262 H Hemoglobin A1c 5.9 Total Bilirubin 0.70 AST 12 ALT 11 Alkaline Phosphatase 57 Lipase 10 L 11/01/16 08:31 WBC Hgb Hct Sodium 142 Potassium 4.3 D Chloride 104.2 Carbon Dioxide 27 BUN 21 H Creatinine 1.0 D Glucose 115 H Hemoglobin A1c Total Bilirubin AST ALT Alkaline Phosphatase Lipase Objective Vital Signs - 12hr 11/01/16 11/01/16 11/01/16 08:22 14:55 15:00 Temperature 99.3 F 97.7 F Pulse Rate [ 84 80 Left Radial] Respiratory 22 20 22 Rate Blood Pressure 126/80 139/69 [Left Arm] O2 Sat by Pulse 95 96 Oximetry - Labs 10/30/16 18:24 11/01/16 08:31 Diabetes panel 11/01/16 Range/Units 08:31 Sodium 142 (137-145) mmol/L Potassium 4.3 D (3.6-5.0) mmol/L Chloride 104.2 (98-107) mmol/L Carbon Dioxide 27 (22-30) mmol/L BUN 21 H (7-17) mg/dL Creatinine 1.0 D (0.7-1.2) mg/dL Glucose 115 H (65-100) mg/dL Calcium 7.9 L (8.4-10.2) mg/dL Calcium panel 11/01/16 Range/Units 08:31 Calcium 7.9 L (8.4-10.2) mg/dL Pituitary panel 11/01/16 Range/Units 08:31 Sodium 142 (137-145) mmol/L Potassium 4.3 D (3.6-5.0) mmol/L Chloride 104.2 (98-107) mmol/L Carbon Dioxide 27 (22-30) mmol/L BUN 21 H (7-17) mg/dL Creatinine 1.0 D (0.7-1.2) mg/dL Glucose 115 H (65-100) mg/dL Calcium 7.9 L (8.4-10.2) mg/dL Adrenal panel 11/01/16 Range/Units 08:31 Sodium 142 (137-145) mmol/L Potassium 4.3 D (3.6-5.0) mmol/L Chloride 104.2 (98-107) mmol/L Carbon Dioxide 27 (22-30) mmol/L BUN 21 H (7-17) mg/dL Creatinine 1.0 D (0.7-1.2) mg/dL Glucose 115 H (65-100) mg/dL Calcium 7.9 L (8.4-10.2) mg/dL
[2016-11-02 06:14] LABS: Anion Gap 14 mmol/L; BUN/Creatinine Ratio 12.85; Blood Urea Nitrogen 9 mg/dL (7-17); Calcium 8.1 mg/dL (8.4-10.2); Carbon Dioxide 27 mmol/L (22-30); Chloride 103.6 mmol/L (98-107); Glucose 97 mg/dL (65-100); Sodium 141 mmol/L (137-145)
--- NOTE | 2016-11-02 06:23 | Consultation ---
REASON FOR CONSULTATION: 1. Abdominal pain, rule out colitis. 2. Cholelithiasis. HISTORY OF PRESENT ILLNESS: The patient is a healthy 56-year-old female who was admitted to the hospital with chief complaint of severe diarrhea and \\"dehydration.\\" States had some nausea and vomiting. Her main abdominal complaints were that of left upper quadrant as well as left lower quadrant abdominal pain. The patient states that both her diary and abdominal pain are much \\"improved.\\" PAST MEDICAL HISTORY: Negative. PAST SURGICAL HISTORY: Status post x4. ALLERGIES: No known allergies. MEDICATIONS: No medications. FAMILY HISTORY: Hypertension, also had a sister that of esophageal cancer. SOCIAL HISTORY: Denies any smoking or drinking. REVIEW OF SYSTEMS: Noncontributory. PHYSICAL EXAMINATION: GENERAL: At this time reveals the patient to be awake, alert, cooperative, in no acute distress. VITAL SIGNS: Temperature currently is 97.7, blood pressure 139/69, pulse of 80, respirations are 20. HEENT: Pupils are equal and reactive to light and accommodation. Sclerae are nonicteric. ABDOMEN: Examination of the abdomen reveals to be moderately obese. The abdomen itself is soft. There is mild left upper quadrant as well as left lower quadrant tenderness, but no guarding. GENITOURINARY: Right upper quadrant is nontender. Bowel sounds are present, somewhat hypoactive. LABORATORY DATA: Lab work at present includes a CBC which shows a white count of 10.6, H and H is 15 and 45. Electrolytes are currently normal with sodium of 142, potassium of 4.3, chloride 104, CO2 of 27, BUN is 21 and creatinine is 1. It was noted that the patient's BUN was 38 and creatinine 2.1 on admission, most likely secondary to dehydration from her diarrhea. Also, high blood sugar was noted on admission is 262, but her A1c is normal at 5.9. Currently, glucose is down to 115. LFTs are essentially normal including a total bili of 0.7, AST is 12, ALT 11, alkaline phosphatase is 57 and lipase is normal at 10. Urinalysis moves minimal white cells of 5, negative nitrites and the urine itself is clear, no bacteria. A CT scan of the abdomen was performed with no contrast at that time because her creatinine was 2.1. A CT impression is that of colitis involving the descending colon. A cholelithiasis is also mentioned, but no evidence of acute cholecystitis. IMPRESSION: 1. At this time is that of a healthy 56-year-old female with descending colitis. 2. What appears to be asymptomatic cholelithiasis. We would recommend to keep the patient n.p.o. until her pain subsides and her diarrhea completely resolves. Also, we would recommend stool cultures and gastrointestinal evaluation. We will monitor closely with you for the next few days to assure the patient continues to clinically improve from surgical perspective. Down the road, we can consider possible elective cholecystectomy once this acute episode of colitis resolves. Thank you very much for consultation. JOB# [id number] NIC/BRENDA
[2016-11-02] MEDS: FLAGYL 500 MG/100 ML 500 MG/100 ML BAG IV SCH ×3 (07:17→22:00)
[2016-11-02] MEDS ORDERED: IMODIUM PO SCH (09:00)
[2016-11-02] MEDS: LEVAQUIN 750MG/150ML 750 MG/150 ML BAG IV SCH (10:50)
[2016-11-02] MEDS: HEPARIN SUB-Q SCH ×2 (10:51→21:05)
--- NOTE | 2016-11-02 10:52 | Gastroenterology Consultation ---
History of Present Illness - Reason for Consult Consult date: 11/02/16 Colitis Requesting physician: ALETHEA GARBER - History of Present Illness The patient is a 56-year-old female who was at her baseline state of good health until approximately 5 days prior to admission. She began having nausea, vomiting and left lower quadrant pain. Diarrhea was present and was quite severe for several days. The patient eventually came to the emergency room for evaluation. She was found to have severe dehydration with renal insufficiency. Consultation has been requested for an abnormal CT finding of thickening of the descending colon suggestive of colitis. The patient has been on metronidazole and Levaquin since admission and has improved considerably although still has mild diarrhea at this point. She is tolerating a clear liquid diet. She has no prior history of diarrhea or bleeding. The patient has experienced no weight loss. There is no family history of inflammatory bowel disease or colon cancer. She is never had a colonoscopy. Past History Past Medical History: hypertension Past Surgical History: (X4) Social history: no significant social history Family history: hypertension Medications and Allergies Allergies Allergy/AdvReac Type Severity Reaction Status Date / Time No Known Allergies Allergy Verified 05/11/14 23:56 Home Medications Medication Instructions Recorded Confirmed Last Taken Type No Known Home Medications [No 10/31/16 10/31/16 Unknown History Reported Home Medications] Active Meds: Active Medications Acetaminophen (Tylenol) 650 mg PO Q4H PRN PRN Reason: Pain MILD(1-3)/Fever >100.5/[place] Last Admin: 11/01/16 14:50 Dose: 650 mg Bisacodyl (Dulcolax) 10 mg CA QDAY PRN PRN Reason: Constipation unrelieved by MOM Heparin Sodium (Porcine) (Heparin) 5,000 unit SUB-Q Q12HR [facility] Metronidazole (Flagyl 500 Mg/100 Ml) 500 mg in 100 mls @ 100 mls/hr IV Q8HR [facility] Last Admin: 11/02/16 07:17 Dose: 100 mls/hr Levofloxacin/Dextrose (Levaquin 750mg/150ml) 750 mg in 150 mls @ 100 mls/hr IV Q24HR [facility] Last Admin: 11/02/16 10:50 Dose: 100 mls/hr Loperamide HCl (Imodium) 2 mg PO ONCE [facility] Morphine Sulfate (Morphine) 2 mg IV Q4H PRN PRN Reason: Pain, Moderate (4-6) Last Admin: 10/31/16 21:31 Dose: 2 mg Ondansetron HCl (Zofran) 4 mg IV Q4H PRN PRN Reason: Nausea And Vomiting Review of Systems - Review of Systems Constitutional: no weight loss, no weight gain, no fever, no chills Eyes: no change in vision Ears, Nose, Throat: no decreased hearing, no epistaxis Breasts: deferred Cardiovascular: rapid/irregular heart beat, no chest pain, no shortness of breath Respiratory: no cough, no shortness of breath, no wheezing, no home oxygen Gastrointestinal: abdominal pain, nausea, vomiting, diarrhea, no hematemesis, no BRBPR, no melena, no heartburn Rectal: no pain, no incontinence, no bleeding Female Genitourinary: deferred Musculoskeletal: no gait dysfunction, no joint pain, no muscle pain Integumentary: no rash, no pruritis, no jaundice Neurological: no head injury, no paralysis, no weakness Psychiatric: no anxiety, no memory loss Endocrine: no cold intolerance Hematologic/Lymphatic: no easy bruising, no easy bleeding, no lymphadenopathy Allergic/Immunologic: no wheezing, no angioedema Exam - Constitutional Vital Signs: Temp Pulse Resp BP Pulse Ox 99.6 F 79 18 130/62 96 11/02/16 07:00 11/02/16 07:00 11/02/16 07:00 11/02/16 07:00 11/02/16 07:00 General appearance: no acute distress, well-nourished, obese - EENT Eyes: PERRL ENT: hearing intact, clear oral mucosa, dentition normal - Neck Neck: supple, normal ROM, no masses or JVD - Respiratory Respiratory effort: normal Respiratory: bilateral: CTA - Breasts Breasts: deferred - Cardiovascular Rhythm: regular Heart Sounds: Present: S1 & S2. Absent: gallop, rub Extremities: pulses intact, No edema, normal color, Full ROM - Gastrointestinal General gastrointestinal: Present: soft, tender (mildly tender in the left lower quadrant. No rebound or guarding.), non-distended, normal bowel sounds. Absent: hepatomegaly, splenomegaly, mass Rectal Exam: deferred - Genitourinary Female Genitourinary: deferred - Integumentary Integumentary: Present: clear, warm, dry - Neurologic Neurological: alert and oriented x3 - Psychiatric Psychiatric: appropriate mood/affect, intact judgment & insight, memory intact - Labs CBC & Chem 7: 10/30/16 18:24 11/02/16 05:21 Lab Results: Laboratory Results - last 24 hr 11/01/16 11/02/16 15:00 05:21 Sodium 141 Potassium 4.0 Chloride 103.6 Carbon Dioxide 27 Anion Gap 14 BUN 9 Creatinine 0.7 Estimated GFR > 60 BUN/Creatinine Ratio 12.85 Glucose 97 Calcium 8.1 L Urine Creatinine 81.2 H Urine Sodium 57 Fraction Sodium Excret 0.4 - Imaging CT Scan: report reviewed Assessment and Plan - Patient Problems (1) Acute renal insufficiency Current Visit: Yes Status: Acute (2) Colitis Current Visit: Yes Status: Acute Plan to address problem: The symptoms and CT findings likely reflect an acute infectious illness, probable gastroenteritis versus the lesser probability of a focal ischemia of the descending colon. Cancer is a much less likely probability. Obtain stool studies given the mild diarrhea that persists. Her diarrhea may be in part secondary to the clear liquid diet at this point. Diet may be safely advanced tolerated. The patient should continue on metronidazole and a quinolone empirically for at least 10 days. She will need an outpatient colonoscopy. Thank you very much for asking me to see Mrs. Lopez in consultation. (3) Vomiting Current Visit: Yes Status: Acute Qualifiers: Vomiting type: V Vomiting Intractability: V Nausea presence: N
[2016-11-02] MEDS: TYLENOL PO PRN (11:06)
--- NOTE | 2016-11-02 14:50 | Progress Note ---
Assessment and Plan Assessment and plan: Patient is a 56-year-old woman history of hypertension not on medication presents with nausea vomiting abdominal pain and diarrhea. CT abdomen and pelvis without contrast because creatinine is 2.1 shows a light is involving the descending colon, cholelithiasis without mention of acute cholecystitis, enlarged fibroid uterus, 12 mm right adrenal gland nodule is probably a benign adenoma. Renal ultrasound shows no acute abnormality, chronic medical renal disease. Creatinine was 2.1, blood glucose 265 and a potassium of 3.3. -Acute descending colitis: IV antibiotics, IV fluids -Acute renal failure, vasomotor nephropathy, present on admission: IV fluids, evaluated by nephrology -Uncontrolled diabetes mellitus: Add sliding scale -Cholelithiasis, asymptomatic: medical management -DVT prophylaxis: add sq heparin still with diarrhea, stool culture and c.diffe ordered, once resulted d/c home History Interval history: Patient seen and examined. Follow up on abdominal pain, nausea vomiting diarrhea. Overnight uneventful. No cp, sob, n/v or severe headaches. Imaging, old records, testing, labs, nursing notes reviewed. Hospitalist Physical - Physical exam Narrative exam: GEN: WDWN, NAD, AWAKE, ALERT, ORIENTATED x 3 HEENT: NCAT, PERRL, EOMI, OP CLEAR NECK: SUPPLE, NO THYROMEGALY, NO JVD, NO LAD CVS: RRR, NORMAL S1S2 LUNGS/CHEST: CTA B, NORMAL CHEST EXPANSION B, GOOD AIR ENTRY B ABD: SOFT, diffuse tenderness nondistended GBS, NO REBOUND OR GUARDING EXT/SKIN: NO SIGNIFICANT EDEMA OR RASH MSK: FROM X 4 EXTREMITIES NEURO: CN 2-12 GROSSLY INTACT, NO FOCAL DEFICITS PSY: CALM - Constitutional Vitals: Temp Pulse Resp BP Pulse Ox 99.6 F 79 18 130/62 96 11/02/16 07:00 11/02/16 07:00 11/02/16 07:00 11/02/16 07:00 11/02/16 07:00 General appearance: Present: no acute distress, well-nourished Results - Labs CBC & Chem 7: 10/30/16 18:24 11/02/16 05:21 Labs: Laboratory Last Values WBC 10.6 K/mm3 (4.5-11.0) 10/30/16 18:24 RBC 5.52 M/mm3 (3.65-5.03) H 10/30/16 18:24 Hgb 15.0 gm/dl (10.1-14.3) H 10/30/16 18:24 Hct 45.9 % (30.3-42.9) H 10/30/16 18:24 MCV 83 fl (79-97) 10/30/16 18:24 MCH 27 pg (28-32) L 10/30/16 18:24 MCHC 33 % (30-34) 10/30/16 18:24 RDW 15.5 % (13.2-15.2) H 10/30/16 18:24 Plt Count 396 K/mm3 (140-440) 10/30/16 18:24 Lymph % (Auto) 8.8 % (13.4-35.0) L 10/30/16 18:24 [place] % (Auto) 9.3 % (0.0-7.3) H 10/30/16 18:24 Eos % (Auto) 0.0 % (0.0-4.3) 10/30/16 18:24 Baso % (Auto) 0.2 % (0.0-1.8) 10/30/16 18:24 Lymph # 0.9 K/mm3 (1.2-5.4) L 10/30/16 18:24 [place] # 1.0 K/mm3 (0.0-0.8) H 10/30/16 18:24 Eos # 0.0 K/mm3 (0.0-0.4) 10/30/16 18:24 Baso # 0.0 K/mm3 (0.0-0.1) 10/30/16 18:24 Seg Neutrophils % 81.7 % (40.0-70.0) H 10/30/16 18:24 Seg Neutrophils # 8.7 K/mm3 (1.8-7.7) H 10/30/16 18:24 Sodium 141 mmol/L (137-145) 11/02/16 05:21 Potassium 4.0 mmol/L (3.6-5.0) 11/02/16 05:21 Chloride 103.6 mmol/L (98-107) 11/02/16 05:21 Carbon Dioxide 27 mmol/L (22-30) 11/02/16 05:21 Anion Gap 14 mmol/L 11/02/16 05:21 BUN 9 mg/dL (7-17) 11/02/16 05:21 Creatinine 0.7 mg/dL (0.7-1.2) 11/02/16 05:21 Estimated GFR > 60 ml/min 11/02/16 05:21 BUN/Creatinine Ratio 12.85 % 11/02/16 05:21 Glucose 97 mg/dL (65-100) 11/02/16 05:21 Hemoglobin A1c 5.9 % (4-6) 10/30/16 18:24 Calcium 8.1 mg/dL (8.4-10.2) L 11/02/16 05:21 Magnesium 3.60 mg/dL (1.7-2.3) H 11/01/16 08:31 Total Bilirubin 0.70 mg/dL (0.1-1.2) 10/30/16 18:24 AST 12 units/L (5-40) 10/30/16 18:24 ALT 11 units/L (7-56) 10/30/16 18:24 Alkaline Phosphatase 57 units/L (35-129) 10/30/16 18:24 Total Protein 7.4 g/dL (6.3-8.2) 10/30/16 18:24 Albumin 3.6 g/dL (3.9-5) L 10/30/16 18:24 Albumin/Globulin Ratio 0.9 % 10/30/16 18:24 Lipase 10 units/L (13-60) L 10/30/16 18:24 Urine Color Yellow (Yellow) 10/31/16 06:46 Urine Turbidity Clear (Clear) 10/31/16 06:46 Urine pH 5.0 (5.0-7.0) 10/31/16 06:46 Ur Specific Dawson 1.014 (1.003-1.030) 10/31/16 06:46 Urine Protein <15 mg/dl mg/dL (Negative) 10/31/16 06:46 Urine Glucose (UA) Neg mg/dL (Negative) 10/31/16 06:46 Urine Ketones Neg mg/dL (Negative) 10/31/16 06:46 Urine Blood Sm (Negative) 10/31/16 06:46 Urine Nitrite Neg (Negative) 10/31/16 06:46 Urine Bilirubin Neg (Negative) 10/31/16 06:46 Urine Urobilinogen < 2.0 mg/dL (<2.0) 10/31/16 06:46 Ur Leukocyte Esterase Neg (Negative) 10/31/16 06:46 Urine WBC (Auto) 5.0 /HPF (0.0-6.0) 10/31/16 06:46 Urine RBC (Auto) 6.0 /HPF (0.0-6.0) 10/31/16 06:46 U Epithel Cells (Auto) 3.0 /HPF (0-13.0) 10/31/16 06:46 Hyaline Casts 9 /LPF 10/31/16 06:46 Urine Mucus Few /HPF 10/31/16 06:46 Urine Creatinine 81.2 mg/dL (0.1-20.0) H 11/01/16 15:00 Urine Sodium 57 mEq/L 11/01/16 15:00 Fraction Sodium Excret 0.4 11/01/16 15:00
--- NOTE | 2016-11-02 22:31 | Progress Note ---
Assessment and Plan Pt feeling better. diarrhea improving. lio cl liq but still c/o some abd pain Abd soft. mild LLQ abd tenderness but improving GI eval noted. stool cults collected. personally would rec keeping npo until pain & diarrhea subside. surgically stable continue Levaquin & Flagyl Selected Entries 11/02/16 16:30 Temperature 100.1 F H Pulse Rate [ 73 Left Radial] Respiratory 20 Rate Blood Pressure 160/69 [Left Arm] Laboratory Tests 11/02/16 05:21 Sodium 141 Potassium 4.0 Chloride 103.6 BUN 9 Creatinine 0.7 Glucose 97 Objective Vital Signs - 12hr 11/02/16 16:30 Temperature 100.1 F H Pulse Rate [ 73 Left Radial] Respiratory 20 Rate Blood Pressure 160/69 [Left Arm] - Labs 10/30/16 18:24 11/02/16 05:21 Diabetes panel 11/02/16 Range/Units 05:21 Sodium 141 (137-145) mmol/L Potassium 4.0 (3.6-5.0) mmol/L Chloride 103.6 (98-107) mmol/L Carbon Dioxide 27 (22-30) mmol/L BUN 9 (7-17) mg/dL Creatinine 0.7 (0.7-1.2) mg/dL Glucose 97 (65-100) mg/dL Calcium 8.1 L (8.4-10.2) mg/dL Calcium panel 11/02/16 Range/Units 05:21 Calcium 8.1 L (8.4-10.2) mg/dL Pituitary panel 11/02/16 Range/Units 05:21 Sodium 141 (137-145) mmol/L Potassium 4.0 (3.6-5.0) mmol/L Chloride 103.6 (98-107) mmol/L Carbon Dioxide 27 (22-30) mmol/L BUN 9 (7-17) mg/dL Creatinine 0.7 (0.7-1.2) mg/dL Glucose 97 (65-100) mg/dL Calcium 8.1 L (8.4-10.2) mg/dL Adrenal panel 11/02/16 Range/Units 05:21 Sodium 141 (137-145) mmol/L Potassium 4.0 (3.6-5.0) mmol/L Chloride 103.6 (98-107) mmol/L Carbon Dioxide 27 (22-30) mmol/L BUN 9 (7-17) mg/dL Creatinine 0.7 (0.7-1.2) mg/dL Glucose 97 (65-100) mg/dL Calcium 8.1 L (8.4-10.2) mg/dL
[2016-11-03] MEDS: FLAGYL 500 MG/100 ML 500 MG/100 ML BAG IV SCH ×2 (05:58→14:08)
[2016-11-03 06:33] LABS: Hematocrit 36.6 % (30.3-42.9); Mean Corpuscular HGB Conc 33 % (30-34); Mean Corpuscular Hemoglobin 27 pg (28-32); Mean Corpuscular Volume 82 fl (79-97); Platelet Count 262 K/mm3 (140-440); Red Blood Count 4.46 M/mm3 (3.65-5.03); Red Cell Distribution Width 14.9 % (13.2-15.2); White Blood Count 7.1 K/mm3 (4.5-11.0)
[2016-11-03 06:51] LABS: Blood Urea Nitrogen 8 mg/dL (7-17); Calcium 8.6 mg/dL (8.4-10.2); Carbon Dioxide 25 mmol/L (22-30); Glucose 98 mg/dL (65-100)
[2016-11-03 07:52] LABS: Anion Gap 14 mmol/L; Chloride 105.5 mmol/L (98-107); Potassium 4.3 mmol/L (3.6-5.0); Sodium 140 mmol/L (137-145)
[2016-11-03 08:06] LABS: Basophils % (Manual) 0 % (0.0-1.8); Blastocytes % (Manual) 0 %
[2016-11-03 08:07] LABS: Diff Status Complete; RBC Morphology Normal
[2016-11-03] MEDS: LEVAQUIN 750MG/150ML 750 MG/150 ML BAG IV SCH (09:19)
[2016-11-03] MEDS: HEPARIN SUB-Q SCH (09:20)
--- NOTE | 2016-11-03 14:21 | Gastroenterology Progress Note ---
Assessment and Plan - Patient Problems (1) Acute renal insufficiency Current Visit: Yes Status: Acute (2) Colitis Current Visit: Yes Status: Acute Plan to address problem: Likely an acute infectious gastroenteritis. Improving rapidly. Afebrile, WBC is normal. Diarrhea improved. Pain improved. C. diff is still pending. OK to go home today if C. diff is negative, on metronidazole and cipro to complete 10 days. Office f/u and outpatient colonoscopy is strongly recommended (3) Vomiting Current Visit: Yes Status: Acute Qualifiers: Vomiting type: V Vomiting Intractability: V Nausea presence: N Subjective Date of service: 11/03/16 Principal diagnosis: colitis Interval history: The patient reports feeling much better. Only 2 stools overnight. Much less abdominal discomfort. Tolerating regular diet. Objective - Constitutional Vitals: Temp Pulse Resp BP Pulse Ox 98.4 F 76 20 145/66 93 11/03/16 07:00 11/03/16 07:00 11/03/16 07:00 11/03/16 07:00 11/03/16 07:00 General appearance: no acute distress - EENT ENT: hearing intact, clear oral mucosa - Neck Neck: supple, normal ROM - Respiratory Respiratory effort: normal Respiratory: bilateral: CTA - Cardiovascular Rhythm: regular - Gastrointestinal General gastrointestinal: Present: soft, non-tender, non-distended, normal bowel sounds - Neurologic Neurological: alert and oriented x3 - Labs CBC & Chem 7: 11/03/16 05:54 11/03/16 05:54 Labs: Laboratory Results - last 24 hr 11/03/16 11/03/16 05:54 05:54 WBC 7.1 RBC 4.46 Hgb 12.0 Hct 36.6 MCV 82 MCH 27 L MCHC 33 RDW 14.9 Plt Count 262 Add Manual Diff Complete Total Counted 100 Seg Neuts % (Manual) 66.0 Band Neutrophils % 4.0 Lymphocytes % (Manual) 27.0 Reactive Lymphs % (Man) 0 Monocytes % (Manual) 2.0 Eosinophils % (Manual) 1.0 Basophils % (Manual) 0 Metamyelocytes % 0 Myelocytes % 0 Promyelocytes % 0 Blast Cells % 0 Nucleated RBC % Not Reportable Seg Neutrophils # Man 4.7 Band Neutrophils # 0.3 Lymphocytes # (Manual) 1.9 Abs React Lymphs (Man) 0.0 Monocytes # (Manual) 0.1 Eosinophils # (Manual) 0.1 Basophils # (Manual) 0.0 Metamyelocytes # 0.0 Myelocytes # 0.0 Promyelocytes # 0.0 Blast Cells # 0.0 WBC Morphology Not Reportable Hypersegmented Neuts Not Reportable Hyposegmented Neuts Not Reportable Hypogranular Neuts Not Reportable Smudge Cells Not Reportable Toxic Granulation Not Reportable Toxic Vacuolation Not Reportable Dohle Bodies Not Reportable Pelger-Huet Anomaly Not Reportable Katherine Rods Not Reportable Platelet Estimate Appears normal Clumped Platelets Not Reportable Plt Clumps, EDTA Not Reportable Large Platelets Not Reportable Giant Platelets Not Reportable Platelet Satelliting Not Reportable Plt Morphology Comment Not Reportable RBC Morphology Normal Dimorphic RBCs Not Reportable Polychromasia Not Reportable Hypochromasia Not Reportable Poikilocytosis Not Reportable Anisocytosis Not Reportable Microcytosis Not Reportable Macrocytosis Not Reportable Spherocytes Not Reportable Pappenheimer Bodies Not Reportable Sickle Cells Not Reportable Target Cells Not Reportable Tear Drop Cells Not Reportable Ovalocytes Not Reportable Helmet Cells Not Reportable Hern[place]dez[place] Bodies Not Reportable [place] Rings Not Reportable Izaiah Cells Not Reportable Bite Cells Not Reportable Crenated Cell Not Reportable Elliptocytes Not Reportable Acanthocytes (Spur) Not Reportable Rouleaux Not Reportable Hemoglobin C Crystals Not Reportable Schistocytes Not Reportable Malaria parasites Not Reportable Wero Bodies Not Reportable Hem Pathologist Commnt No Sodium 140 Potassium 4.3 Chloride 105.5 Carbon Dioxide 25 Anion Gap 14 BUN 8 Creatinine 0.8 Estimated GFR > 60 BUN/Creatinine Ratio 10.00 Glucose 98 Calcium 8.6
--- NOTE | 2016-11-03 14:56 | Progress Note ---
Assessment and Plan Assessment and plan: Patient is a 56-year-old woman history of hypertension not on medication presents with nausea vomiting abdominal pain and diarrhea. CT abdomen and pelvis without contrast because creatinine is 2.1 shows a light is involving the descending colon, cholelithiasis without mention of acute cholecystitis, enlarged fibroid uterus, 12 mm right adrenal gland nodule is probably a benign adenoma. Renal ultrasound shows no acute abnormality, chronic medical renal disease. Creatinine was 2.1, blood glucose 265 and a potassium of 3.3. -Acute descending colitis: IV antibiotics, IV fluids -Acute renal failure, vasomotor nephropathy, present on admission: IV fluids, evaluated by nephrology -Uncontrolled diabetes mellitus: Add sliding scale -Cholelithiasis, asymptomatic: medical management -DVT prophylaxis: add sq heparin still with diarrhea but much less, stool culture and c.diffe ordered, Low grade temp of 100.1 yesterday. I ordered blood cultures. None since==> follow this up with GI outpatient. "(1) Acute renal insufficiency Current Visit: Yes Status: Acute (2) Colitis Current Visit: Yes Status: Acute Plan to address problem: Likely an acute infectious gastroenteritis. Improving rapidly. Afebrile, WBC is normal. Diarrhea improved. Pain improved. C. diff is still pending. OK to go home today if C. diff is negative, on metronidazole and cipro to complete 10 days. Office f/u and outpatient colonoscopy is strongly recommended (3) Vomiting Current Visit: Yes Status: Acute Qualifiers: Vomiting type: V Vomiting Intractability: V Nausea presence: N Subjective Date of service: 11/03/16 Principal diagnosis: colitis Interval history: The patient reports feeling much better. Only 2 stools overnight. Much less abdominal discomfort. Tolerating regular diet." per GI, Dr. Torres Pt tolerating diet, C.diff negative, will discharge History Interval history: Patient seen and examined. Follow up on abdominal pain, nausea vomiting diarrhea. Overnight uneventful. No cp, sob, n/v or severe headaches. Imaging, old records, testing, labs, nursing notes reviewed. low grade temp of 100.1 yesterday evening was never reported to me. Hospitalist Physical - Physical exam Narrative exam: GEN: WDWN, NAD, AWAKE, ALERT, ORIENTATED x 3 HEENT: NCAT, PERRL, EOMI, OP CLEAR NECK: SUPPLE, NO THYROMEGALY, NO JVD, NO LAD CVS: RRR, NORMAL S1S2 LUNGS/CHEST: CTA B, NORMAL CHEST EXPANSION B, GOOD AIR ENTRY B ABD: SOFT, diffuse tenderness nondistended GBS, NO REBOUND OR GUARDING EXT/SKIN: NO SIGNIFICANT EDEMA OR RASH MSK: FROM X 4 EXTREMITIES NEURO: CN 2-12 GROSSLY INTACT, NO FOCAL DEFICITS PSY: CALM - Constitutional Vitals: Temp Pulse Resp BP Pulse Ox 98.4 F 76 20 145/66 93 11/03/16 07:00 11/03/16 07:00 11/03/16 07:00 11/03/16 07:00 11/03/16 07:00 General appearance: Present: no acute distress, well-nourished Results - Labs CBC & Chem 7: 11/03/16 05:54 11/03/16 05:54 Labs: Laboratory Last Values WBC 7.1 K/mm3 (4.5-11.0) 11/03/16 05:54 RBC 4.46 M/mm3 (3.65-5.03) 11/03/16 05:54 Hgb 12.0 gm/dl (10.1-14.3) 11/03/16 05:54 Hct 36.6 % (30.3-42.9) 11/03/16 05:54 MCV 82 fl (79-97) 11/03/16 05:54 MCH 27 pg (28-32) L 11/03/16 05:54 MCHC 33 % (30-34) 11/03/16 05:54 RDW 14.9 % (13.2-15.2) 11/03/16 05:54 Plt Count 262 K/mm3 (140-440) 11/03/16 05:54 Lymph % (Auto) 8.8 % (13.4-35.0) L 10/30/16 18:24 [place] % (Auto) 9.3 % (0.0-7.3) H 10/30/16 18:24 Eos % (Auto) 0.0 % (0.0-4.3) 10/30/16 18:24 Baso % (Auto) 0.2 % (0.0-1.8) 10/30/16 18:24 Lymph # 0.9 K/mm3 (1.2-5.4) L 10/30/16 18:24 [place] # 1.0 K/mm3 (0.0-0.8) H 10/30/16 18:24 Eos # 0.0 K/mm3 (0.0-0.4) 10/30/16 18:24 Baso # 0.0 K/mm3 (0.0-0.1) 10/30/16 18:24 Add Manual Diff Complete 11/03/16 05:54 Total Counted 100 11/03/16 05:54 Seg Neutrophils % 81.7 % (40.0-70.0) H 10/30/16 18:24 Seg Neuts % (Manual) 66.0 % (40.0-70.0) 11/03/16 05:54 Band Neutrophils % 4.0 % 11/03/16 05:54 Lymphocytes % (Manual) 27.0 % (13.4-35.0) 11/03/16 05:54 Reactive Lymphs % (Man) 0 % 11/03/16 05:54 Monocytes % (Manual) 2.0 % (0.0-7.3) 11/03/16 05:54 Eosinophils % (Manual) 1.0 % (0.0-4.3) 11/03/16 05:54 Basophils % (Manual) 0 % (0.0-1.8) 11/03/16 05:54 Metamyelocytes % 0 % 11/03/16 05:54 Myelocytes % 0 % 11/03/16 05:54 Promyelocytes % 0 % 11/03/16 05:54 Blast Cells % 0 % 11/03/16 05:54 Nucleated RBC % Not Reportable 11/03/16 05:54 Seg Neutrophils # 8.7 K/mm3 (1.8-7.7) H 10/30/16 18:24 Seg Neutrophils # Man 4.7 K/mm3 (1.8-7.7) 11/03/16 05:54 Band Neutrophils # 0.3 K/mm3 11/03/16 05:54 Lymphocytes # (Manual) 1.9 K/mm3 (1.2-5.4) 11/03/16 05:54 Abs React Lymphs (Man) 0.0 K/mm3 11/03/16 05:54 Monocytes # (Manual) 0.1 K/mm3 (0.0-0.8) 11/03/16 05:54 Eosinophils # (Manual) 0.1 K/mm3 (0.0-0.4) 11/03/16 05:54 Basophils # (Manual) 0.0 K/mm3 (0.0-0.1) 11/03/16 05:54 Metamyelocytes # 0.0 K/mm3 11/03/16 05:54 Myelocytes # 0.0 K/mm3 11/03/16 05:54 Promyelocytes # 0.0 K/mm3 11/03/16 05:54 Blast Cells # 0.0 K/mm3 11/03/16 05:54 WBC Morphology Not Reportable 11/03/16 05:54 Hypersegmented Neuts Not Reportable 11/03/16 05:54 Hyposegmented Neuts Not Reportable 11/03/16 05:54 Hypogranular Neuts Not Reportable 11/03/16 05:54 Smudge Cells Not Reportable 11/03/16 05:54 Toxic Granulation Not Reportable 11/03/16 05:54 Toxic Vacuolation Not Reportable 11/03/16 05:54 Dohle Bodies Not Reportable 11/03/16 05:54 Pelger-Huet Anomaly Not Reportable 11/03/16 05:54 Katherine Rods Not Reportable 11/03/16 05:54 Platelet Estimate Appears normal 11/03/16 05:54 Clumped Platelets Not Reportable 11/03/16 05:54 Plt Clumps, EDTA Not Reportable 11/03/16 05:54 Large Platelets Not Reportable 11/03/16 05:54 Giant Platelets Not Reportable 11/03/16 05:54 Platelet Satelliting Not Reportable 11/03/16 05:54 Plt Morphology Comment Not Reportable 11/03/16 05:54 RBC Morphology Normal 11/03/16 05:54 Dimorphic RBCs Not Reportable 11/03/16 05:54 Polychromasia Not Reportable 11/03/16 05:54 Hypochromasia Not Reportable 11/03/16 05:54 Poikilocytosis Not Reportable 11/03/16 05:54 Anisocytosis Not Reportable 11/03/16 05:54 Microcytosis Not Reportable 11/03/16 05:54 Macrocytosis Not Reportable 11/03/16 05:54 Spherocytes Not Reportable 11/03/16 05:54 Pappenheimer Bodies Not Reportable 11/03/16 05:54 Sickle Cells Not Reportable 11/03/16 05:54 Target Cells Not Reportable 11/03/16 05:54 Tear Drop Cells Not Reportable 11/03/16 05:54 Ovalocytes Not Reportable 11/03/16 05:54 Helmet Cells Not Reportable 11/03/16 05:54 [place] Bodies Not Reportable 11/03/16 05:54 [place] Rings Not Reportable 11/03/16 05:54 [place] Cells Not Reportable 11/03/16 05:54 Bite Cells Not Reportable 11/03/16 05:54 Crenated Cell Not Reportable 11/03/16 05:54 Elliptocytes Not Reportable 11/03/16 05:54 Acanthocytes (Spur) Not Reportable 11/03/16 05:54 Rouleaux Not Reportable 11/03/16 05:54 Hemoglobin C Crystals Not Reportable 11/03/16 05:54 Schistocytes Not Reportable 11/03/16 05:54 Malaria parasites Not Reportable 11/03/16 05:54 Wero Bodies Not Reportable 11/03/16 05:54 Hem Pathologist Commnt No 11/03/16 05:54 Sodium 140 mmol/L (137-145) 11/03/16 05:54 Potassium 4.3 mmol/L (3.6-5.0) 11/03/16 05:54 Chloride 105.5 mmol/L (98-107) 11/03/16 05:54 Carbon Dioxide 25 mmol/L (22-30) 11/03/16 05:54 Anion Gap 14 mmol/L 11/03/16 05:54 BUN 8 mg/dL (7-17) 11/03/16 05:54 Creatinine 0.8 mg/dL (0.7-1.2) 11/03/16 05:54 Estimated GFR > 60 ml/min 11/03/16 05:54 BUN/Creatinine Ratio 10.00 % 11/03/16 05:54 Glucose 98 mg/dL (65-100) 11/03/16 05:54 Hemoglobin A1c 5.9 % (4-6) 10/30/16 18:24 Calcium 8.6 mg/dL (8.4-10.2) 11/03/16 05:54 Magnesium 3.60 mg/dL (1.7-2.3) H 11/01/16 08:31 Total Bilirubin 0.70 mg/dL (0.1-1.2) 10/30/16 18:24 AST 12 units/L (5-40) 10/30/16 18:24 ALT 11 units/L (7-56) 10/30/16 18:24 Alkaline Phosphatase 57 units/L (35-129) 10/30/16 18:24 Total Protein 7.4 g/dL (6.3-8.2) 10/30/16 18:24 Albumin 3.6 g/dL (3.9-5) L 10/30/16 18:24 Albumin/Globulin Ratio 0.9 % 10/30/16 18:24 Lipase 10 units/L (13-60) L 10/30/16 18:24 Urine Color Yellow (Yellow) 10/31/16 06:46 Urine Turbidity Clear (Clear) 10/31/16 06:46 Urine pH 5.0 (5.0-7.0) 10/31/16 06:46 Ur Specific [place] 1.014 (1.003-1.030) 10/31/16 06:46 Urine Protein <15 mg/dl mg/dL (Negative) 10/31/16 06:46 Urine Glucose (UA) Neg mg/dL (Negative) 10/31/16 06:46 Urine Ketones Neg mg/dL (Negative) 10/31/16 06:46 Urine Blood Sm (Negative) 10/31/16 06:46 Urine Nitrite Neg (Negative) 10/31/16 06:46 Urine Bilirubin Neg (Negative) 10/31/16 06:46 Urine Urobilinogen < 2.0 mg/dL (<2.0) 10/31/16 06:46 Ur Leukocyte Esterase Neg (Negative) 10/31/16 06:46 Urine WBC (Auto) 5.0 /HPF (0.0-6.0) 10/31/16 06:46 Urine RBC (Auto) 6.0 /HPF (0.0-6.0) 10/31/16 06:46 U Epithel Cells (Auto) 3.0 /HPF (0-13.0) 10/31/16 06:46 Hyaline Casts 9 /LPF 10/31/16 06:46 Urine Mucus Few /HPF 10/31/16 06:46 Urine Creatinine 81.2 mg/dL (0.1-20.0) H 11/01/16 15:00 Urine Sodium 57 mEq/L 11/01/16 15:00 Fraction Sodium Excret 0.4 11/01/16 15:00
--- NOTE | 2016-11-03 15:00 | Discharge Summary ---
Providers - Providers Date of Admission: 10/31/16 11:25 Date of discharge: 11/03/16 Attending physician: ALETHEA GARBER 10/31/16 12:09 Consult to Physician [CONS] Routine Consulting Provider: VINCENT KHAN Reason For Exam: Cholelithiasis Place consult to:: SURGERY Notified:: Y If yes, spoke with:: A/S Time called:: 12:30 11/01/16 20:18 Consult to Physician [CONS] Routine Consulting Provider: GRADY QUINTERO Reason For Exam: L colitis Place consult to:: DR. QUINTERO Notified:: ANSWERING SERVICES Phone number called:: [phone] Was contact made?: Yes If yes, spoke with:: MARCEL Time called:: 08:58 Comment:: FLORECITA NOTIFIED Primary care physician: WIG DRESSER Hospitalization Condition: Stable Hospital course: Patient is a 56-year-old woman history of hypertension not on medication presents with nausea vomiting abdominal pain and diarrhea. CT abdomen and pelvis without contrast because creatinine is 2.1 shows a light is involving the descending colon, cholelithiasis without mention of acute cholecystitis, enlarged fibroid uterus, 12 mm right adrenal gland nodule is probably a benign adenoma. Renal ultrasound shows no acute abnormality, chronic medical renal disease. Creatinine was 2.1, blood glucose 265 and a potassium of 3.3. -Acute descending colitis: IV antibiotics, IV fluids -Acute renal failure, vasomotor nephropathy, present on admission: IV fluids, evaluated by nephrology -Uncontrolled diabetes mellitus: Add sliding scale -Cholelithiasis, asymptomatic: medical management -DVT prophylaxis: add sq heparin still with diarrhea but much less, stool culture and c.diffe ordered, Low grade temp of 100.1 yesterday. I ordered blood cultures. None since==> follow this up with GI outpatient. "(1) Acute renal insufficiency Current Visit: Yes Status: Acute (2) Colitis Current Visit: Yes Status: Acute Plan to address problem: Likely an acute infectious gastroenteritis. Improving rapidly. Afebrile, WBC is normal. Diarrhea improved. Pain improved. C. diff is still pending. OK to go home today if C. diff is negative, on metronidazole and cipro to complete 10 days. Office f/u and outpatient colonoscopy is strongly recommended (3) Vomiting Current Visit: Yes Status: Acute Qualifiers: Vomiting type: V Vomiting Intractability: V Nausea presence: N Subjective Date of service: 11/03/16 Principal diagnosis: colitis Interval history: The patient reports feeling much better. Only 2 stools overnight. Much less abdominal discomfort. Tolerating regular diet." per GI, Dr. Quintero Pt tolerating diet, C.diff negative, will discharge, ok per Dr. Quintero. He stressed the importance of outpatient colonoscopy Disposition: DC-01 TO HOME OR SELFCARE Time spent for discharge: 39 minutes Core Measure Documentation - Palliative Care Palliative Care/ Comfort Measures: Not Applicable - Core Measures Any of the following diagnoses?: none - VTE Discharge Requirements Deep Vein Thrombosis/Pulmonary Embolism Present on Admission: No Has pt received <5 days of overlap therapy or INR<2.0: No Anticoagulant overlap therapy prescribed at discharge: No Contraindication No Overlap Therapy order at DC: Not Indicated Exam - Physical Exam Narrative exam: GEN: WDWN, NAD, AWAKE, ALERT, ORIENTATED x 3 HEENT: NCAT, PERRL, EOMI, OP CLEAR NECK: SUPPLE, NO THYROMEGALY, NO JVD, NO LAD CVS: RRR, NORMAL S1S2 LUNGS/CHEST: CTA B, NORMAL CHEST EXPANSION B, GOOD AIR ENTRY B ABD: SOFT, diffuse tenderness nondistended GBS, NO REBOUND OR GUARDING EXT/SKIN: NO SIGNIFICANT EDEMA OR RASH MSK: FROM X 4 EXTREMITIES NEURO: CN 2-12 GROSSLY INTACT, NO FOCAL DEFICITS PSY: CALM - Constitutional Vitals: Temp Pulse Resp BP Pulse Ox 98.4 F 76 20 145/66 93 11/03/16 07:00 11/03/16 07:00 11/03/16 07:00 11/03/16 07:00 11/03/16 07:00 Plan Activity: other (no strenous activity until cleared by pcp) Diet: advance as tolerated Follow up with: DIA SOLOMON MD [Primary Care Provider] - 7 Days GRADY QUINTERO MD [Staff Physician] - 7 Days Prescriptions: Ciprofloxacin HCl [Ciprofloxacin TAB] 500 mg PO BID #7 day metroNIDAZOLE [Flagyl] 500 mg PO TID #7 day
[2016-11-03 16:12] VITALS: BP 147/80
--- NOTE | 2016-11-03 16:42 | Progress Note ---
Assessment and Plan Pt stable. lio diet. denies abd pain Abd soft. non tender at present Being d/c'ed surgically stable call office for f/u this week to review option on cholelithiasis. will also need GI f/u and colonoscopy in the next 6-8 wks Selected Entries 11/03/16 16:00 Temperature 98.0 F Pulse Rate [ 86 Left Radial] Respiratory 20 Rate Blood Pressure 147/80 [Left Arm] Laboratory Tests 11/03/16 05:54 WBC 7.1 Hgb 12.0 Hct 36.6 Objective Vital Signs - 12hr 11/03/16 11/03/16 07:00 16:00 Temperature 98.4 F 98.0 F Pulse Rate [ 76 86 Left Radial] Respiratory 20 20 Rate Blood Pressure 145/66 147/80 [Left Arm] O2 Sat by Pulse 93 Oximetry - Labs 11/03/16 05:54 11/03/16 05:54 Diabetes panel 11/03/16 Range/Units 05:54 Sodium 140 (137-145) mmol/L Potassium 4.3 (3.6-5.0) mmol/L Chloride 105.5 (98-107) mmol/L Carbon Dioxide 25 (22-30) mmol/L BUN 8 (7-17) mg/dL Creatinine 0.8 (0.7-1.2) mg/dL Glucose 98 (65-100) mg/dL Calcium 8.6 (8.4-10.2) mg/dL Calcium panel 11/03/16 Range/Units 05:54 Calcium 8.6 (8.4-10.2) mg/dL Pituitary panel 11/03/16 Range/Units 05:54 Sodium 140 (137-145) mmol/L Potassium 4.3 (3.6-5.0) mmol/L Chloride 105.5 (98-107) mmol/L Carbon Dioxide 25 (22-30) mmol/L BUN 8 (7-17) mg/dL Creatinine 0.8 (0.7-1.2) mg/dL Glucose 98 (65-100) mg/dL Calcium 8.6 (8.4-10.2) mg/dL Adrenal panel 11/03/16 Range/Units 05:54 Sodium 140 (137-145) mmol/L Potassium 4.3 (3.6-5.0) mmol/L Chloride 105.5 (98-107) mmol/L Carbon Dioxide 25 (22-30) mmol/L BUN 8 (7-17) mg/dL Creatinine 0.8 (0.7-1.2) mg/dL Glucose 98 (65-100) mg/dL Calcium 8.6 (8.4-10.2) mg/dL
== END 2016-11-03 17:25 | disposition home or self-care (01) | DRG 391 ==
LOC: ED 17:39 → 3A 10-31 11:25
PROVIDERS: ADMIT Internal Medicine; ATTEND Internal Medicine
DX: K52.9 Noninfective gastroenteritis and colitis, unspecified (principal); N17.0 Acute kidney failure with tubular necrosis; E87.2 Acidosis; K80.20 Calculus of gallbladder without cholecystitis without obstruction; E11.65 Type 2 diabetes mellitus with hyperglycemia; I10 Essential (primary) hypertension; E86.0 Dehydration; R19.7 Diarrhea, unspecified; E87.6 Hypokalemia; E66.9 Obesity, unspecified; Z68.35 Body mass index [BMI] 35.0-35.9, adult; Z98.891 History of uterine scar from previous surgery; Z82.49 Family history of ischemic heart disease and other diseases of the circulatory system; Z80.0 Family history of malignant neoplasm of digestive organs
CPT/HCPCS: 36415; 74176; 76770; 80048; 80053; 81001; 82570; 83036; 83690; 83735; 84300; 85007; 85025; 87040; 87045; 87493; 96374; 96375; 99285; J1644; J1956; J2270; J2405; J3480; J7030; J7042; Q0162

== ENCOUNTER 2017-11-29 19:59 | Observation (INO) | payer MEDICAID ==
[2017-11-29 23:57] LABS: Basophils % (Auto) 0.5 % (0.0-1.8); Eosinophils # (Auto) 0.2 K/mm3 (0.0-0.4); Eosinophils % (Auto) 2.9 % (0.0-4.3); Hemoglobin 12.6 gm/dl (10.1-14.3); Lymphocytes # (Auto) 2.4 K/mm3 (1.2-5.4); Lymphocytes % (Auto) 37.7 % (13.4-35.0); Mean Corpuscular HGB Conc 33 % (30-34); Mean Corpuscular Hemoglobin 27 pg (28-32); Mean Corpuscular Volume 82 fl (79-97); Monocytes # (Auto) 0.3 K/mm3 (0.0-0.8); Monocytes % (Auto) 4.3 % (0.0-7.3); Platelet Count 302 K/mm3 (140-440); Red Blood Count 4.62 M/mm3 (3.65-5.03); Red Cell Distribution Width 15.6 % (13.2-15.2)
[2017-11-30 00:13] LABS: BUN/Creatinine Ratio 16; Blood Urea Nitrogen 13 mg/dL (7-17); Calcium 9.3 mg/dL (8.4-10.2); Hemolysis Index 13
[2017-11-30] MEDS ORDERED: TORADOL IV ONE (01:44)
[2017-11-30] MEDS ORDERED: NITROSTAT SL PRN (01:44)
[2017-11-30] MEDS ORDERED: SUBLIMAZE IV ONE (01:44)
[2017-11-30] MEDS ORDERED: NACL 0.9% 500 ML 500 ML IV ONE (01:45)
--- NOTE | 2017-11-30 01:45 | Emergency Department Report ---
ED Chest Pain HPI - General Chief Complaint: Chest Pain Stated Complaint: CHEST PAIN,,LEFT ARM PAIN Time Seen by Provider: 11/30/17 01:30 Source: patient, RN notes reviewed, old records reviewed Mode of arrival: Ambulatory Limitations: No Limitations - History of Present Illness Initial Comments: This is a 57-year-old female who is unknown to this provider. Past medical history includes diabetes, hypertension, history of renal insufficiency, cholelithiasis. She currently does not have a local primary care doctor. Also has a history of DVT, pulmonary embolus. Presents to the ER with a complaint of bilateral chest wall pain, occasional left arm pain, and left flank pain. This has been intermittent for the past 3 days. The pain increases with palpation and decreases with rest. There is no vomiting or diaphoresis. There is no shortness of breath. There is no lower abdominal pain. Patient reports a recent road trip to [place]. She denies hematemesis, bright red blood per rectum. She denies irritative urinary symptoms. MD Complaint: chest pain -: Gradual Onset: during rest Pain Location: substernal, left chest, right chest Pain Radiation: back Severity: moderate Quality: tightness, aching, heaviness Consistency: intermittent Improves With: rest Worsens With: palpation Context: recent travel re: denies: nausea, vomting, diaphoresis, dyspnea, sense of impending doom Aspirin use within the Past 7 Days: (0) No - Related Data On Oral Contraceptives: No Home Medications Medication Instructions Recorded Confirmed Last Taken No Known Home Medications [No 11/30/17 11/30/17 Unknown Reported Home Medications] Allergies Allergy/AdvReac Type Severity Reaction Status Date / Time No Known Allergies Allergy Verified 11/29/17 20:19 Heart Score - HEART Score History: Moderately suspicious EKG: Non-specific Age: 45-65 Risk factors: 1-2 risk factors Troponin: < normal limit HEART Score: 4 - Critical Actions Critical Actions: 4-6 pts:12-16.6% risk of adverse cardiac event. Should be admitted ED Review of Systems ROS: Stated complaint: CHEST PAIN,,LEFT ARM PAIN Other details as noted in HPI Constitutional: malaise. denies: fever Eyes: denies: vision change ENT: denies: epistaxis Respiratory: denies: cough Cardiovascular: chest pain Gastrointestinal: denies: vomiting Genitourinary: denies: dysuria Musculoskeletal: back pain Skin: denies: rash Neurological: weakness Psychiatric: anxiety ED Past Medical Hx - Past Medical History Hx Hypertension: Yes Additional medical history: fibroids - Surgical History Past Surgical History?: No Additional Surgical History: x4, tubal ligation - Social History Smoking Status: Never Smoker Substance Use Type: None - Medications Home Medications: Home Medications Medication Instructions Recorded Confirmed Last Taken Type No Known Home Medications [No 11/30/17 11/30/17 Unknown History Reported Home Medications] ED Physical Exam - General Limitations: No Limitations General appearance: alert, in no apparent distress - Head Head exam: Present: atraumatic, normocephalic - Eye Eye exam: Present: normal appearance, EOMI. Absent: nystagmus - ENT ENT exam: Present: normal exam, normal orophraynx, mucous membranes moist, normal external ear exam - Neck Neck exam: Present: normal inspection, full ROM - Respiratory Respiratory exam: Present: normal lung sounds bilaterally, chest wall tenderness. Absent: respiratory distress - Cardiovascular Cardiovascular Exam: Present: regular rate, normal rhythm, normal heart sounds. Absent: bradycardia, tachycardia, irregular rhythm, systolic murmur, diastolic murmur, rubs, gallop - GI/Abdominal GI/Abdominal exam: Present: soft, normal bowel sounds. Absent: distended, tenderness, guarding, rebound, rigid, pulsatile mass - Extremities Exam Extremities exam: Present: normal inspection, full ROM, normal capillary refill , other (2+ pulses noted in the bilateral upper, lower extremities. Compartments soft. No long bony tenderness. The pelvis is stable.). Absent: pedal edema, joint swelling, calf tenderness - Back Exam Back exam: Present: normal inspection, full ROM, CVA tenderness (L). Absent: tenderness, CVA tenderness (R), paraspinal tenderness, vertebral tenderness - Neurological Exam Neurological exam: Present: alert, oriented X3, CN II-XII intact, other ( Extraocular movements intact. Tongue midline. No facial droop. Facial sensation intact to light touch in the V1, V2, V3 distribution bilaterally. 5 and 5 strength in 4 extremities.. Sensation is intact to light touch in 4 extremities.). Absent: motor sensory deficit - Psychiatric Psychiatric exam: Present: normal affect, normal mood - Skin Skin exam: Present: warm, dry, intact, normal color. Absent: rash ED Course Vital Signs 0711/30/17 11/30/17 20:19 02:00 02:24 Temperature 97.9 F 97.8 F Pulse Rate 84 76 Respiratory 16 20 20 Rate Blood Pressure 184/100 Blood Pressure 208/113 [Right] O2 Sat by Pulse 97 97 97 Oximetry 11/30/17 11/30/17 02:53 04:22 Temperature Pulse Rate 78 Respiratory 20 18 Rate Blood Pressure Blood Pressure 168/88 [Right] O2 Sat by Pulse 98 Oximetry - Reevaluation(s) Reevaluation #1: 11/30/17 04:40 CT scan of the chest is negative for pulmonary embolus. Case presented to Hospital physician, Dr. Rojas, who accepted the patient to the medical service for cardiac risk stratification. XOCHITL score - Xochitl Score Age > 65: (0) No Aspirin use within the Past 7 Days: (0) No 3 or more CAD Risk Factors: (0) No 2 or more Angina events in past 24 hrs: (0) No Known CAD with more than 50% Stenosis: (0) No Elevated Cardiac Markers: (0) No ST Deviation Greater than 0.5mm: (0) No XOCHITL Score: 0 ED Medical Decision Making - Lab Data Result diagrams: 11/29/17 23:36 11/29/17 23:36 Vital Signs 11/29/17 11/30/17 11/30/17 20:19 02:00 02:24 Temperature 97.9 F 97.8 F Pulse Rate 84 76 Respiratory 16 20 20 Rate Blood Pressure 184/100 Blood Pressure 208/113 [Right] O2 Sat by Pulse 97 97 97 Oximetry 11/30/17 02:53 Temperature Pulse Rate Respiratory 20 Rate Blood Pressure Blood Pressure [Right] O2 Sat by Pulse Oximetry Lab Results 11/29/17 11/29/17 11/30/17 Range/Units 23:36 23:36 01:57 WBC 6.4 (4.5-11.0) K/mm3 RBC 4.62 (3.65-5.03) M/mm3 Hgb 12.6 (10.1-14.3) gm/dl Hct 38.0 (30.3-42.9) % MCV 82 (79-97) fl MCH 27 L (28-32) pg MCHC 33 (30-34) % RDW 15.6 H (13.2-15.2) % Plt Count 302 (140-440) K/mm3 Lymph % (Auto) 37.7 H (13.4-35.0) % [place] % (Auto) 4.3 (0.0-7.3) % Eos % (Auto) 2.9 (0.0-4.3) % Baso % (Auto) 0.5 (0.0-1.8) % Lymph # 2.4 (1.2-5.4) K/mm3 [place] # 0.3 (0.0-0.8) K/mm3 Eos # 0.2 (0.0-0.4) K/mm3 Baso # 0.0 (0.0-0.1) K/mm3 Seg Neutrophils % 54.6 (40.0-70.0) % Seg Neutrophils # 3.5 (1.8-7.7) K/mm3 PT (12.2-14.9) Sec. INR (0.87-1.13) D-Dimer (0-234) ng/mlDDU Sodium 141 (137-145) mmol/L Potassium 3.8 (3.6-5.0) mmol/L Chloride 103.7 (98-107) mmol/L Carbon Dioxide 26 (22-30) mmol/L Anion Gap 15 mmol/L BUN 13 (7-17) mg/dL Creatinine 0.8 (0.7-1.2) mg/dL Estimated GFR > 60 ml/min BUN/Creatinine Ratio 16 % Glucose 113 H (65-100) mg/dL Calcium 9.3 (8.4-10.2) mg/dL Total Bilirubin (0.1-1.2) mg/dL Direct Bilirubin (0-0.2) mg/dL Indirect Bilirubin mg/dL AST (5-40) units/L ALT (7-56) units/L Alkaline Phosphatase (35-129) units/L Troponin T < 0.010 < 0.010 (0.00-0.029) ng/mL Total Protein (6.3-8.2) g/dL Albumin (3.9-5) g/dL Albumin/Globulin Ratio % Lipase (13-60) units/L Urine Color (Yellow) Urine Turbidity (Clear) Urine pH (5.0-7.0) Ur Specific [place] (1.003-1.030) Urine Protein (Negative) mg/dL Urine Glucose (UA) (Negative) mg/dL Urine Ketones (Negative) mg/dL Urine Blood (Negative) Urine Nitrite (Negative) Urine Bilirubin (Negative) Urine Urobilinogen (<2.0) mg/dL Ur Leukocyte Esterase (Negative) Urine WBC (Auto) (0.0-6.0) /HPF Urine RBC (Auto) (0.0-6.0) /HPF U Epithel Cells (Auto) (0-13.0) /HPF Urine Mucus /HPF 11/30/17 11/30/17 11/30/17 Range/Units 01:57 01:57 02:09 WBC (4.5-11.0) K/mm3 RBC (3.65-5.03) M/mm3 Hgb (10.1-14.3) gm/dl Hct (30.3-42.9) % MCV (79-97) fl MCH (28-32) pg MCHC (30-34) % RDW (13.2-15.2) % Plt Count (140-440) K/mm3 Lymph % (Auto) (13.4-35.0) % [place] % (Auto) (0.0-7.3) % Eos % (Auto) (0.0-4.3) % Baso % (Auto) (0.0-1.8) % Lymph # (1.2-5.4) K/mm3 [place] # (0.0-0.8) K/mm3 Eos # (0.0-0.4) K/mm3 Baso # (0.0-0.1) K/mm3 Seg Neutrophils % (40.0-70.0) % Seg Neutrophils # (1.8-7.7) K/mm3 PT 12.8 (12.2-14.9) Sec. INR 0.92 (0.87-1.13) D-Dimer 302.52 H (0-234) ng/mlDDU Sodium (137-145) mmol/L Potassium (3.6-5.0) mmol/L Chloride (98-107) mmol/L Carbon Dioxide (22-30) mmol/L Anion Gap mmol/L BUN (7-17) mg/dL Creatinine (0.7-1.2) mg/dL Estimated GFR ml/min BUN/Creatinine Ratio % Glucose (65-100) mg/dL Calcium (8.4-10.2) mg/dL Total Bilirubin 0.30 (0.1-1.2) mg/dL Direct Bilirubin < 0.2 (0-0.2) mg/dL Indirect Bilirubin 0.1 mg/dL AST 33 (5-40) units/L ALT 40 (7-56) units/L Alkaline Phosphatase 71 (35-129) units/L Troponin T (0.00-0.029) ng/mL Total Protein 7.8 (6.3-8.2) g/dL Albumin 4.3 (3.9-5) g/dL Albumin/Globulin Ratio 1.2 % Lipase 26 (13-60) units/L Urine Color Yellow (Yellow) Urine Turbidity Clear (Clear) Urine pH 5.0 (5.0-7.0) Ur Specific [place] 1.014 (1.003-1.030) Urine Protein 100 mg/dl (Negative) mg/dL Urine Glucose (UA) Neg (Negative) mg/dL Urine Ketones Neg (Negative) mg/dL Urine Blood Sm (Negative) Urine Nitrite Neg (Negative) Urine Bilirubin Neg (Negative) Urine Urobilinogen < 2.0 (<2.0) mg/dL Ur Leukocyte Esterase Neg (Negative) Urine WBC (Auto) 5.0 (0.0-6.0) /HPF Urine RBC (Auto) 5.0 (0.0-6.0) /HPF U Epithel Cells (Auto) 4.0 (0-13.0) /HPF Urine Mucus Few /HPF - EKG Data -: EKG Interpreted by Dc EKG shows normal: sinus rhythm - EKG Data 11/30/17 03:31 Sinus rhythm, 75 bpm, left axis deviation, left anterior fascicular block, high left ventricular voltage, abnormal EKG, not a STEMI, unchanged from prior 2013. - Radiology Data Radiology results: report reviewed, image reviewed X-ray of the chest, interpreted by radiology, no acute disease - Medical Decision Making Differential diagnosis, including but not limited to: Pulmonary embolus, costochondritis, acute coronary syndrome, renal colic, pyelonephritis Assessment and plan: 57-year-old female with chest pain, moderate risk by heart score, elevated d-dimer, reproducible chest wall pain and left flank pain. Laboratory studies reviewed, nondiagnostic. CT angiogram of the chest is ordered. CT scan of the abdomen and pelvis is ordered. Reassess after CT scans have resulted. Critical care attestation.: If time is entered above; I have spent that time in minutes in the direct care of this critically ill patient, excluding procedure time. ED Disposition Clinical Impression: Chest pain, Flank pain, Abnormal EKG Disposition: OP ADMIT IP TO THIS HOSP Is pt being admited?: Yes Does the pt Need Aspirin: Yes Condition: Good Instructions: Chest Pain (ED) Referrals: TIFFANY BROCK MD [Primary Care Provider] - 3-5 Days
[2017-11-30 02:19] LABS: INR 0.92 (0.87-1.13)
[2017-11-30 02:37] LABS: Alanine Aminotransferase 40 units/L (7-56); Albumin 4.3 g/dL (3.9-5); Lipase 26 units/L (13-60)
[2017-11-30 02:42] LABS: Bilirubin,Urine NEG (Negative); Blood,Urine SM (Negative); Color,Urine Yellow (Yellow); Mucus,Urine FEW /HPF; Urobilinogen,Urine < 2.0 mg/dL (<2.0)
--- NOTE | 2017-11-30 02:44 | XRay Report ---
FINAL REPORT PROCEDURE: XR CHEST ROUTINE 2V TECHNIQUE: PA and lateral chest radiographs were obtained. CPT 90826 HISTORY: chest wakll pain COMPARISON: No prior studies are available for comparison. FINDINGS: Heart: Normal. Mediastinum/Vessels: Normal. Lungs/Pleural space: Normal. Bony thorax: No acute osseous abnormality. Other: IMPRESSION: Normal examination.
[2017-11-30 02:45] LABS: Bilirubin,Direct < 0.2 mg/dL (0-0.2)
--- NOTE | 2017-11-30 03:41 | Cat Scan Report ---
FINAL REPORT PROCEDURE: CT ANGIO CHEST TECHNIQUE: Computerized tomographic angiography of the chest was performed after the IV injection of iodinated nonionic contrast including image processing. The image data was postprocessed using 2-dimensional multiplanar reformatted (MPR) and 3-dimensional (MIP and/or volume rendered) techniques. HISTORY: chest pain, history of pulmonary embolus COMPARISON: No prior studies are available for comparison. FINDINGS: Heart and pericardium: Heart size is normal. There is a 4.5 centimeters cyst off the inferior aspect of the left thyroid gland.. Thoracic aorta: Normal. Pulmonary vasculature: Normal. Lymph nodes: No enlarged thoracic lymph nodes. Lungs: Normal. Pleural space: No effusion, thickening, or pneumothorax. Musculoskeletal structures: No significant abnormality. Upper abdominal structures: There is a small hiatal hernia identified.. IMPRESSION: There is no evidence of pulmonary arterial emboli. The lungs are clear without infiltrate, effusion or pneumothorax. There is a large 4.5 centimeters cystic region identified off of the left lower thyroid gland. This is not fully evaluated on this study.
[2017-11-30] MEDS ORDERED: BABY ASPIRIN PO ONE (04:41)
--- NOTE | 2017-11-30 05:37 | Cat Scan Report ---
FINAL REPORT PROCEDURE: CT ABDOMEN PELVIS W CON TECHNIQUE: Computerized axial tomography of the abdomen and pelvis was performed after the IV injection of iodinated nonionic contrast. HISTORY: left flank pain COMPARISON: No prior studies are available for comparison. FINDINGS: Visualized lower thorax: No significant abnormality. Liver: The liver has a normal size. There are few small foci of hypoattenuation within the liver, small cysts are suspected.. Spleen: Normal size and attenuation. Gallbladder and biliary system: The gallbladder is slightly distended. There are few calcifications within the gallbladder lumen. No distension of biliary ductal system.. Pancreas: Normal. Adrenals: There is a 6 millimeter nodular density in the right adrenal gland. An adenoma is suspected. Kidneys: Both kidneys have a normal size. No hydronephrosis. There is a 3 centimeters cyst in the medial posterior left renal cortex. A few sub centimeter renal cortical cysts are identified bilaterally.. GI tract: The stomach is normal. A small hiatal hernia is identified. The small bowel has a normal caliber. The cecum, appendix and colon are normal.. Lymph nodes and mesentery: Normal. Vasculature: Normal. Bladder: Normal. Reproductive organs: There is a mass extending up out of the pelvis, this has numerous calcifications and appears to represent enlarged uterus with most likely fibroid formation. This measures 14.5 x 8.5 by 13.8 centimeters. The ovaries are not definitely identified separate from this mass. .. Peritoneum: No free fluid. Musculoskeletal structures: No significant abnormality. Other: None. IMPRESSION: There is no evidence of intestinal or urinary tract obstruction. No ileus or enteritis. Enlarged fibroid filled uterus. Cholelithiasis.
[2017-11-30] MEDS ORDERED: ZOFRAN IV PRN (05:39)
[2017-11-30] MEDS ORDERED: SODIUM CHLORIDE FLUSH SYRINGE 10 ML IV PRN (05:39)
[2017-11-30] MEDS ORDERED: MORPHINE IV PRN (05:39)
[2017-11-30] MEDS ORDERED: TYLENOL PO PRN (05:39)
[2017-11-30] MEDS ORDERED: ZESTRIL PO ONE (05:44)
--- NOTE | 2017-11-30 05:54 | History and Physical Report ---
History of Present Illness Date of examination: 11/30/17 Chief complaint: Pain across the chest for 4 days History of present illness: 57-year-old moderately obese -[place] female with history of hypertension, DVT and PE not on any medications presented to the ED with complaints of pain across the chest and along the left lower chest and left arm for 4 days. She states the pain is constant heavy pressure-like in nature and sometimes gets worse with activity. She denies any shortness of breath nausea or diaphoresis dizziness or loss of consciousness. She was diagnosed with DVT and pulmonary embolism 4 years ago and apparently took medication for about 6 months. She has history of hypertension but is not taking any medications Past History Past Medical History: DVT, hypertension, pulmonary embolism Past Surgical History: , Other (tubal ligation) Social history: no significant social history. denies: smoking, alcohol abuse Family history: hypertension Medications and Allergies Allergies Allergy/AdvReac Type Severity Reaction Status Date / Time No Known Allergies Allergy Verified 11/29/17 20:19 Home Medications Medication Instructions Recorded Confirmed Last Taken Type No Known Home Medications [No 11/30/17 11/30/17 Unknown History Reported Home Medications] Active Meds: Active Medications Acetaminophen (Tylenol) 650 mg PO Q4H PRN PRN Reason: Pain MILD(1-3)/Fever >100.5/[place] Amlodipine Besylate (Norvasc) 5 mg PO DAILY [facility] Heparin Sodium (Porcine) (Heparin) 5,000 unit SUB-Q Q8HR [facility] Dextrose/Sodium Chloride (D5/0.45ns) 1,000 mls @ 42 mls/hr IV DIRECT [facility] Lisinopril (Zestril) 10 mg PO DAILY [facility] Morphine Sulfate (Morphine) 1 mg IV Q4H PRN PRN Reason: Pain, Moderate (4-6) Nitroglycerin (Nitrostat) 0.4 mg SL .Q5MIN PRN PRN Reason: Chest Pain Ondansetron HCl (Zofran) 4 mg IV Q8H PRN PRN Reason: Nausea And Vomiting Sodium Chloride (Sodium Chloride Flush Syringe 10 Ml) 10 ml IV BID [facility] Sodium Chloride (Sodium Chloride Flush Syringe 10 Ml) 10 ml IV PRN PRN PRN Reason: LINE FLUSH Review of Systems Constitutional: no weight loss, no fever, no chills Ears, nose, mouth and throat: no sore throat, no headache, no vertigo Cardiovascular: chest pain, high blood pressure, no orthopnea, no palpitations, no edema, no syncope, no lightheadedness, no shortness of breath Respiratory: no cough, no shortness of breath Gastrointestinal: no abdominal pain, no nausea, no vomiting, no diarrhea, no constipation, no melena, no heartburn Genitourinary Female: no dysuria, no urinary frequency, no urgency, no stress incontinence Rectal: no pain Musculoskeletal: no neck pain, no low back pain Integumentary: no rash Neurological: no seizures, no syncope Psychiatric: no anxiety, no depression Exam - Constitutional Vitals: Temp Pulse Resp BP Pulse Ox 97.8 F 78 18 168/88 98 11/30/17 02:00 11/30/17 04:22 11/30/17 04:22 11/30/17 04:22 11/30/17 04:22 General appearance: Present: no acute distress, well-nourished, obese - EENT Eyes: Present: PERRL, EOM intact ENT: hearing intact, clear oral mucosa - Neck Neck: Present: supple, normal ROM. Absent: masses or JVD - Respiratory Respiratory effort: normal Respiratory: bilateral: CTA - Cardiovascular Rhythm: regular Heart Sounds: Present: S1 & S2 - Extremities Extremities: No edema - Abdominal General gastrointestinal: Present: soft, non-tender. Absent: hepatomegaly, splenomegaly - Rectal Rectal Exam: deferred - Integumentary Integumentary: Present: clear - Musculoskeletal Musculoskeletal: strength equal bilaterally - Psychiatric Psychiatric: appropriate mood/affect - Neurologic Neurologic: no focal deficits, moves all extremities Results - Labs CBC & Chem 7: 11/29/17 23:36 11/29/17 23:36 Labs: Abnormal lab results 11/29/17 11/29/17 11/30/17 Range/Units 23:36 23:36 01:57 MCH 27 L (28-32) pg RDW 15.6 H (13.2-15.2) % Lymph % (Auto) 37.7 H (13.4-35.0) % D-Dimer 302.52 H (0-234) ng/mlDDU Glucose 113 H (65-100) mg/dL Assessment and Plan - Patient Problems (1) Chest pain Current Visit: Yes Status: Acute Qualifiers: Chest pain type: precordial pain Qualified Code(s): R07.2 - Precordial pain Plan to address problem: Admit the patient to observation status KS ruled out with serial troponin levels EKG shows normal sinus rhythm 75 bpm LVH with T-wave inversions in 1 and aVL Oxygen supplement as needed CTA of the chest results reviewed No evidence of PE Schedule patient for Lexiscan stress test cardiology consult (2) Hypertension Current Visit: Yes Status: Chronic Qualifiers: Hypertension type: essential hypertension Qualified Code(s): I10 - Essential (primary) hypertension Plan to address problem: history of medication noncompliance Discussed with patient the dangers of uncontrolled hypertension We will start the patient on amlodipine and low-dose lisinopril Her blood pressure at the time of admission was 208/118 At this time it is 180/100 (3) Obesity (BMI 30-39.9) Current Visit: Yes Status: Chronic Plan to address problem: Due to excess calories Counseling done (4) Asymptomatic cholelithiasis Current Visit: Yes Status: Chronic Plan to address problem: CT of the abdomen and pelvis results reviewed Incidental finding of cholelithiasis No further recommendations
[2017-11-30] MEDS ORDERED: D5/0.45NS 1,000 ML IV SCH (06:00)
[2017-11-30] MEDS: HEPARIN SUB-Q SCH ×2 (06:45→15:04)
[2017-11-30] MEDS ORDERED: HEPARIN ONE (07:01)
[2017-11-30] MEDS ORDERED: LEXISCAN IV ONE (08:08)
[2017-11-30] MEDS ORDERED: ZESTRIL PO SCH (10:00)
[2017-11-30] MEDS ORDERED: SODIUM CHLORIDE FLUSH SYRINGE 10 ML IV SCH (10:00)
[2017-11-30] MEDS ORDERED: NORVASC PO SCH (10:00)
--- NOTE | 2017-11-30 10:15 | Event Note ---
Discharge note 57F with cp, and htn urgency. CTA neg for PE, and went on to have stress test which was. She was put on BP meds regimen Her CT did show a cyst on thyroid, she had TFTs which were, she is advised to fup with pcp within 1 wk for BP check and for evaluation of thyroid cyst Diagnosis Chest pain due to htn urgency thyroid cyst
[2017-11-30 11:23] VITALS: BP 173/102
--- NOTE | 2017-11-30 13:54 | Consultation ---
History of Present Illness Consult date: 11/30/17 Consult reason: chest pain History of present illness: 57-year-old moderately obese -[place] female with history of hypertension, DVT and PE not on any medications presented to the ED with complaints of pain across the chest and along the left lower chest and left arm for 4 days. She states the pain is constant heavy pressure that gets worse with activity. She denies any shortness of breath, orthopnea, pnd, palpitations , dizziness or syncope. Past History Past Medical History: DVT, hypertension, pulmonary embolism Past Surgical History: , Other (tubal ligation) Social history: no significant social history. denies: smoking, alcohol abuse Family history: hypertension Medications and Allergies Allergies Allergy/AdvReac Type Severity Reaction Status Date / Time No Known Allergies Allergy Verified 11/29/17 20:19 Home Medications Medication Instructions Recorded Confirmed Last Taken Type Lisinopril [Zestril TAB] 10 mg PO DAILY #30 tablet 11/30/17 Unknown Rx amLODIPine [Norvasc] 10 mg PO DAILY #30 tab 11/30/17 Unknown Rx Active Meds: Active Medications Acetaminophen (Tylenol) 650 mg PO Q4H PRN PRN Reason: Pain MILD(1-3)/Fever >100.5/[place] Amlodipine Besylate (Norvasc) 5 mg PO DAILY [facility] Last Admin: 11/30/17 10:54 Dose: 5 mg Heparin Sodium (Porcine) (Heparin) 5,000 unit SUB-Q Q8HR [facility] Last Admin: 11/30/17 06:45 Dose: 5,000 unit Dextrose/Sodium Chloride (D5/0.45ns) 1,000 mls @ 42 mls/hr IV DIRECT [facility] Lisinopril (Zestril) 10 mg PO DAILY [facility] Last Admin: 11/30/17 10:54 Dose: 10 mg Morphine Sulfate (Morphine) 1 mg IV Q4H PRN PRN Reason: Pain, Moderate (4-6) Nitroglycerin (Nitrostat) 0.4 mg SL .Q5MIN PRN PRN Reason: Chest Pain Ondansetron HCl (Zofran) 4 mg IV Q8H PRN PRN Reason: Nausea And Vomiting Sodium Chloride (Sodium Chloride Flush Syringe 10 Ml) 10 ml IV BID [facility] Last Admin: 11/30/17 10:54 Dose: 10 ml Sodium Chloride (Sodium Chloride Flush Syringe 10 Ml) 10 ml IV PRN PRN PRN Reason: LINE FLUSH Review of Systems All systems: negative Physical Examination Vital Signs Temp Pulse Resp BP Pulse Ox 97.9 F 84 16 184/100 97 11/29/17 20:19 11/29/17 20:19 11/29/17 20:19 11/29/17 20:19 11/29/17 20:19 General appearance: no acute distress HEENT: Positive: PERRL, EOMI Neck: Positive: neck supple Cardiac: Positive: Reg Rate and Rhythm, S1/S2 Lungs: Positive: Normal Exam Neuro: Positive: Cranial Nerve 2-12 Intact Abdomen: Positive: Soft Extremities: Present: normal Results 11/29/17 23:36 11/29/17 23:36 Cardiac Enzymes 11/30/17 Range/Units 01:57 AST 33 (5-40) units/L Coagulation 11/30/17 Range/Units 01:57 PT 12.8 (12.2-14.9) Sec. INR 0.92 (0.87-1.13) CBC 11/29/17 Range/Units 23:36 WBC 6.4 (4.5-11.0) K/mm3 RBC 4.62 (3.65-5.03) M/mm3 Hgb 12.6 (10.1-14.3) gm/dl Hct 38.0 (30.3-42.9) % Plt Count 302 (140-440) K/mm3 Lymph # 2.4 (1.2-5.4) K/mm3 [place] # 0.3 (0.0-0.8) K/mm3 Eos # 0.2 (0.0-0.4) K/mm3 Baso # 0.0 (0.0-0.1) K/mm3 Comprehensive Metabolic Panel 11/29/17 11/30/17 Range/Units 23:36 01:57 Sodium 141 (137-145) mmol/L Potassium 3.8 (3.6-5.0) mmol/L Chloride 103.7 (98-107) mmol/L Carbon Dioxide 26 (22-30) mmol/L BUN 13 (7-17) mg/dL Creatinine 0.8 (0.7-1.2) mg/dL Glucose 113 H (65-100) mg/dL Calcium 9.3 (8.4-10.2) mg/dL Direct Bilirubin < 0.2 (0-0.2) mg/dL Indirect Bilirubin 0.1 mg/dL AST 33 (5-40) units/L ALT 40 (7-56) units/L Alkaline Phosphatase 71 (35-129) units/L Total Protein 7.8 (6.3-8.2) g/dL Albumin 4.3 (3.9-5) g/dL EKG interpretations - Telemetry EKG Rhythm: Sinus Rhythm Assessment and Plan (1) Chest pain (2) Hypertension (3) Obesity (BMI 30-39.9) (4) Asymptomatic cholelithiasis Stress test shows a small fixed anterior defect likely secondary to breast attenuation. No significant ischemia seen. EF 60%. low risk study No further cardiac evaluation at this time Maximize antihypertensive therapy Patient may follow up in outpatient setting
--- NOTE | 2017-12-03 00:27 | Treadmill Report ---
INDICATION FOR THE PROCEDURE: Chest pain. ORDERING PHYSICIAN: Rene Rojas MD FINDINGS: There is no scintigraphic evidence of myocardial ischemia. There is evidence of a fixed anterior wall defect noted on both rest and stress imaging due to overlying breast attenuation artifact. There is normal wall motion and wall thickening with left ventricular ejection fraction measured at 60%. CONCLUSION: This is a normal perfusion scan associated with 1-year cardiovascular mortality of less than 1%. JOB# [id number] TORI/BRENDA
== END 2017-11-30 16:42 | disposition home or self-care (01) ==
LOC: ED 19:59 → 4A 11-30 05:39
PROVIDERS: ADMIT Internal Medicine; ATTEND Internal Medicine
DX: R07.89 Other chest pain (principal); I10 Essential (primary) hypertension; E66.9 Obesity, unspecified; K80.20 Calculus of gallbladder without cholecystitis without obstruction; Z86.718 Personal history of other venous thrombosis and embolism; Z68.35 Body mass index [BMI] 35.0-35.9, adult; Z86.711 Personal history of pulmonary embolism
CPT/HCPCS: 36415; 71046; 71275; 74177; 78452; 80048; 80074; 81001; 83690; 84436; 84439; 84443; 84484; 85025; 85379; 85610; 93005; 93010; 93017; 96372; 96374; 96375; 99285; A9502; G0378; J1644; J1885; J2785; J3010; J7040; Q9967

== ENCOUNTER 2021-01-10 17:14 | Emergency (ER) | payer MEDICAID, OTHER ==
[2021-01-10] MEDS ORDERED: ASPIRIN 325 MG TAB PO ONE (17:25)
--- NOTE | 2021-01-10 18:07 | XRay Report ---
CHEST 2 VIEWS INDICATION / CLINICAL INFORMATION: CP/SOB. COMPARISON: 2017 FINDINGS: SUPPORT DEVICES: None. HEART / MEDIASTINUM: No significant abnormality. LUNGS / PLEURA: Mild bibasilar streaky opacities could represent atelectasis or developing infectious process. ADDITIONAL FINDINGS: No significant additional findings. Signer Name: Tom Kee MD Signed: 01/10/2021 6:02 PM Workstation Name: [id number]
[2021-01-10 19:20] LABS: Basophils % (Auto) 0.4 % (0.0-1.8); Eosinophils # (Auto) 0.2 K/mm3 (0.0-0.4); Eosinophils % (Auto) 2.7 % (0.0-4.3); Hematocrit 37.4 % (30.3-42.9); Hemoglobin 12.4 gm/dl (10.1-14.3); Lymphocytes % (Auto) 28.7 % (13.4-35.0); Mean Corpuscular HGB Conc 33 % (30-34); Mean Corpuscular Volume 85 fl (79-97); Monocytes # (Auto) 0.5 K/mm3 (0.0-0.8); Monocytes % (Auto) 6.8 % (0.0-7.3); Platelet Count 266 K/mm3 (140-440); Red Blood Count 4.41 M/mm3 (3.65-5.03); Red Cell Distribution Width 14.9 % (13.2-15.2)
[2021-01-10 19:40] LABS: Alanine Aminotransferase 12 units/L (7-56); Albumin 4.1 g/dL (3.9-5); BUN/Creatinine Ratio 13; Blood Urea Nitrogen 10 mg/dL (7-17); Calcium 8.9 mg/dL (8.4-10.2); Hemolysis Index 4
--- NOTE | 2021-01-10 20:11 | Event Note ---
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 Further treatment and workup at subsequent clinical providers discretion. Patient/guardian urged not to elope from the ED as their condition may be serious if not clinically assessed and managed. Initial orders include: labs, ekg, xr
--- NOTE | 2021-01-10 22:36 | Cat Scan Report ---
CTA CHEST WITH CONTRAST INDICATION / CLINICAL INFORMATION: Pt complains of chest pain, SOB, elevated D-dimer, Hx of VTE. TECHNIQUE: Axial CT images were obtained through the chest after injection of 100 mL's of Omnipaque 3 50 IV contrast. 3 plane MIP and/or 3D reconstructions were produced. All CT scans at this location ar e performed using CT dose reduction for ALARA by means of automated exposure control. COMPARISON: 11/30/2017 FINDINGS: PULMONARY ARTERIES: No pulmonary emboli. THORACIC AORTA: No significant abnormality. HEART: No significant abnormality. CORONARY ARTERY CALCIFICATION: None. MEDIASTINUM / MARIELLA: No significant abnormality. PLEURA: No pleural effusion. No pneumothorax. LUNGS: No acute air space or interstitial disease. ADDITIONAL FINDINGS: There is a large cystic lesion emanating from the left thyroid entering into the mediastinum and displacing the trachea rightward. This cystic lesion is unchanged compared to 12/01/19. UPPER ABDOMEN: No acute findings. SKELETAL STRUCTURES: Scattered degeneration. IMPRESSION: 1. No CT evidence for pulmonary embolism. 2. No acute findings. 3. Chronic findings as above. Signer Name: Amilcar Fung DO Signed: 01/10/2021 10:31 PM Workstation Name: [email or web address] [id number]
[2021-01-11] MEDS ORDERED: ACETAMINOPHEN 500 MG TAB PO ONE ×2 (02:33→05:06)
--- NOTE | 2021-01-11 06:15 | Emergency Department Report ---
ED Chest Pain HPI - General Chief Complaint: Chest Pain Stated Complaint: CP/SOB PUI?: No Time Seen by Provider: 01/10/21 20:09 Source: patient Mode of arrival: Ambulatory Limitations: No Limitations - History of Present Illness Severity scale (0 -10): 4 - Related Data Previous Rx's Medication Instructions Recorded Last Taken Type amLODIPine 10 mg PO DAILY #30 tab 11/30/17 Unknown Rx lisinopriL [Zestril TAB] 10 mg PO DAILY #30 tablet 11/30/17 Unknown Rx Ibuprofen [Motrin] 600 mg PO Q8H PRN #20 tablet 06/17/18 Unknown Rx Allergies Allergy/AdvReac Type Severity Reaction Status Date / Time No Known Allergies Allergy Verified 01/10/21 17:23 ED Review of Systems ROS: Stated complaint: CP/SOB Other details as noted in HPI ED Past Medical Hx - Past Medical History Hx Hypertension: Yes Additional medical history: fibroids - Surgical History Additional Surgical History: x4, tubal ligation - Social History Smoking Status: Never Smoker Substance Use Type: None - Medications Home Medications: Home Medications Medication Instructions Recorded Confirmed Last Taken Type amLODIPine 10 mg PO DAILY #30 tab 11/30/17 Unknown Rx lisinopriL [Zestril TAB] 10 mg PO DAILY #30 tablet 11/30/17 Unknown Rx Ibuprofen [Motrin] 600 mg PO Q8H PRN #20 tablet 06/17/18 Unknown Rx ED Physical Exam - General Limitations: No Limitations ED Course Vital Signs 01/10/21 01/10/21 17:26 17:27 Temperature 98.7 F Pulse Rate 96 H Respiratory 18 Rate Blood Pressure 174/74 [Right] O2 Sat by Pulse 98 Oximetry CAMRON score - Camron Score Age > 65: (0) No Aspirin use within the Past 7 Days: (0) No 3 or more CAD Risk Factors: (0) No 2 or more Angina events in past 24 hrs: (0) No Known CAD with more than 50% Stenosis: (0) No Elevated Cardiac Markers: (0) No ST Deviation Greater than 0.5mm: (0) No CAMRON Score: 0 ED Medical Decision Making - Lab Data Result diagrams: 01/10/21 18:45 01/10/21 18:45 - EKG Data -: EKG Interpreted by Ne EKG shows normal: sinus rhythm, axis, intervals, QRS complexes, ST-T waves Rate: normal - EKG Data Interpretation: LVH 01/11/21 06:13 EKG obtained 1720 EKG interpreted by me Normal sinus rhythm rate 90 bpm normal axis normal intervals no ST elevation positive LVH - Radiology Data Radiology results: report reviewed [facility] [address] [place] [address] Cat Scan Report Signed Patient: MICHELLE BLOUNT MR#: [id number] 1 : 1960 Acct:[id number] Age/Sex: 60 / F ADM Date: 01/10/21 Loc: ED Attending Dr: Ordering Physician: AMAYA MCMANUS Date of Service: 01/10/21 Procedure(s): CT angio chest Accession Number(s): [id number] cc: AMAYA MCMANUS CTA CHEST WITH CONTRAST INDICATION / CLINICAL INFORMATION: Pt complains of chest pain, SOB, elevated D- dimer, Hx of VTE. TECHNIQUE: Axial CT images were obtained through the chest after injection of 100 mL's of Omnipaque 350 IV contrast. 3 plane MIP and/or 3D reconstructions were produced. All CT scans at this location are performed using CT dose reduction for ALARA by means of automated exposure control. COMPARISON: 11/30/2017 FINDINGS: PULMONARY ARTERIES: No pulmonary emboli. THORACIC AORTA: No significant abnormality. HEART: No significant abnormality. CORONARY ARTERY CALCIFICATION: None. MEDIASTINUM / MARIELLA: No significant abnormality. PLEURA: No pleural effusion. No pneumothorax. LUNGS: No acute air space or interstitial disease. ADDITIONAL FINDINGS: There is a large cystic lesion emanating from the left thyroid entering into the mediastinum and displacing the trachea rightward. This cystic lesion is unchanged compared to 11/30/2017. UPPER ABDOMEN: No acute findings. SKELETAL STRUCTURES: Scattered degeneration. IMPRESSION: 1. No CT evidence for pulmonary embolism. 2. No acute findings. 3. Chronic findings as above. Signer Name: Amilcar Driver DO Signed: 01/10/2021 10:31 PM Workstation Name: [id number] Transcribed By: ALEAH Dictated By: AMILCAR DRIVER DO Electronically Authenticated By: AMILCAR DRIVER DO Signed Date/Time: 01/10/212230 DD/ 26 TD/TT: [facility] [address] [place] [address] XRay Report Signed Patient: MICHELLE BLOUNT MR#: [id number] 1 : 1960 Acct:[id number] Age/Sex: 60 / F ADM Date: 01/10/21 Loc: ED Attending Dr: Ordering Physician: ED MD LINDA Date of Service: 01/10/21 Procedure(s): XR chest routine 2V Accession Number(s): [id number] cc: ED MD LINDA Fluoro Time In Minutes: CHEST 2 VIEWS INDICATION / CLINICAL INFORMATION: CP/SOB. COMPARISON: 2017 FINDINGS: SUPPORT DEVICES: None. HEART / MEDIASTINUM: No significant abnormality. LUNGS / PLEURA: Mild bibasilar streaky opacities could represent atelectasis or developing infectious process. ADDITIONAL FINDINGS: No significant additional findings. Signer Name: Tom Kee MD Signed: 01/10/2021 6:02 PM Workstation Name: [id number] Transcribed By: ANDREI Dictated By: Tom Kee MD Electronically Authenticated By: Tom Kee MD Signed Date/Time: 01/10/211801 DD/ 01 TD/TT: Critical care attestation.: If time is entered above; I have spent that time in minutes in the direct care of this critically ill patient, excluding procedure time. ED Disposition Condition: Stable Referrals: IRVINGTON PHULETONAHOUGHTON MD SHERICE [Primary Care Provider] - 3-5 Days
--- NOTE | 2021-01-11 06:25 | Emergency Department Report ---
ED Chest Pain HPI - General Chief Complaint: Chest Pain Stated Complaint: CP/SOB PUI?: No Time Seen by Provider: 01/10/21 20:09 Source: patient Mode of arrival: Ambulatory Limitations: No Limitations - History of Present Illness Initial Comments: Chief complaint: Chest pain shortness of breath HPI: This is a 60-year-old female with history of DVT, PE, hypertension, thyroid mass who presents with sharp right sided chest pain which awakened her from sleep. She had associated shortness of breath. She was concerned about COVID infection. Patient received second dose of COVID vaccine recently. November 30, 2017, patient had normal myocardial perfusion scan Complaint: chest pain -: Gradual, days(s) (Yesterday morning) Onset: during rest Pain Location: right chest Pain Radiation: abdomen Severity scale (0 -10): 4 Consistency: now resolved Improves With: nothing Worsens With: nothing Treatments Prior to Arrival: none - Related Data Previous Rx's Medication Instructions Recorded Last Taken Type amLODIPine 10 mg PO DAILY #30 tab 11/30/17 Unknown Rx lisinopriL [Zestril TAB] 10 mg PO DAILY #30 tablet 11/30/17 Unknown Rx Ibuprofen [Motrin] 600 mg PO Q8H PRN #20 tablet 06/17/18 Unknown Rx Allergies Allergy/AdvReac Type Severity Reaction Status Date / Time No Known Allergies Allergy Verified 01/10/21 17:23 Heart Score - HEART Score History: Slightly suspicious EKG: Normal Age: 45-65 Risk factors: 1-2 risk factors Troponin: < normal limit HEART Score: 2 - EKG Read Time Time EKG Completed: 17:20 EKG Read Time: 17:20 - Critical Actions Critical Actions: 0-3 pts:0.9-1.7%risk of adverse cardiac event.Candidate for discharge ED Review of Systems ROS: Stated complaint: CP/SOB Other details as noted in HPI Comment: All other systems reviewed and negative Constitutional: denies: fever, malaise Respiratory: shortness of breath. denies: cough Cardiovascular: chest pain Gastrointestinal: denies: abdominal pain, nausea, vomiting ED Past Medical Hx - Past Medical History Previous Medical History?: Yes Hx Hypertension: Yes Additional medical history: fibroids - Surgical History Past Surgical History?: Yes Additional Surgical History: x4, tubal ligation - Social History Smoking Status: Never Smoker Substance Use Type: None - Medications Home Medications: Home Medications Medication Instructions Recorded Confirmed Last Taken Type amLODIPine 10 mg PO DAILY #30 tab 11/30/17 Unknown Rx lisinopriL [Zestril TAB] 10 mg PO DAILY #30 tablet 11/30/17 Unknown Rx Ibuprofen [Motrin] 600 mg PO Q8H PRN #20 tablet 06/17/18 Unknown Rx ED Physical Exam - General Limitations: No Limitations General appearance: alert, in no apparent distress, other (Sleeping easily arousable appears comfortable) - Head Head exam: Present: atraumatic, normocephalic - Eye Eye exam: Present: normal appearance - ENT ENT exam: Present: mucous membranes moist - Neck Neck exam: Present: normal inspection, full ROM - Respiratory Respiratory exam: Present: normal lung sounds bilaterally. Absent: respiratory distress, wheezes, rales, rhonchi - Cardiovascular Cardiovascular Exam: Present: regular rate, normal rhythm, normal heart sounds. Absent: systolic murmur, diastolic murmur, rubs, gallop - GI/Abdominal GI/Abdominal exam: Present: soft, normal bowel sounds. Absent: distended, tenderness, guarding, rebound - Extremities Exam Extremities exam: Present: normal inspection - Neurological Exam Neurological exam: Present: alert, oriented X3 - Psychiatric Psychiatric exam: Present: normal affect, normal mood - Skin Skin exam: Present: warm, dry, intact, normal color. Absent: rash ED Course Vital Signs 01/10/21 01/10/21 17:26 17:27 Temperature 98.7 F Pulse Rate 96 H Respiratory 18 Rate Blood Pressure 174/74 [Right] O2 Sat by Pulse 98 Oximetry CAMRON score - Camron Score Age > 65: (0) No Aspirin use within the Past 7 Days: (0) No 3 or more CAD Risk Factors: (0) No 2 or more Angina events in past 24 hrs: (0) No Known CAD with more than 50% Stenosis: (0) No Elevated Cardiac Markers: (0) No ST Deviation Greater than 0.5mm: (0) No CAMRON Score: 0 ED Medical Decision Making - Lab Data Result diagrams: 01/10/21 18:45 01/10/21 18:45 Laboratory Results - last 24 hr 01/10/21 01/10/21 01/10/21 18:45 18:45 20:24 WBC 7.0 RBC 4.41 Hgb 12.4 Hct 37.4 MCV 85 MCH 28 MCHC 33 RDW 14.9 Plt Count 266 Lymph % (Auto) 28.7 [place] % (Auto) 6.8 Eos % (Auto) 2.7 Baso % (Auto) 0.4 Lymph # (Auto) 2.0 [place] # (Auto) 0.5 Eos # (Auto) 0.2 Baso # (Auto) 0.0 Seg Neutrophils % 61.4 Seg Neutrophils # 4.3 D-Dimer Sodium 142 Potassium 4.1 Chloride 104.4 Carbon Dioxide 25 Anion Gap 17 BUN 10 Creatinine 0.8 Estimated GFR > 60 BUN/Creatinine Ratio 13 Glucose 85 Calcium 8.9 Total Bilirubin 0.50 AST 12 ALT 12 Alkaline Phosphatase 76 Troponin T < 0.010 < 0.010 Total Protein 7.7 Albumin 4.1 Albumin/Globulin Ratio 1.1 01/10/21 20:24 WBC RBC Hgb Hct MCV MCH MCHC RDW Plt Count Lymph % (Auto) [place] % (Auto) Eos % (Auto) Baso % (Auto) Lymph # (Auto) [place] # (Auto) Eos # (Auto) Baso # (Auto) Seg Neutrophils % Seg Neutrophils # D-Dimer 759.02 H Sodium Potassium Chloride Carbon Dioxide Anion Gap BUN Creatinine Estimated GFR BUN/Creatinine Ratio Glucose Calcium Total Bilirubin AST ALT Alkaline Phosphatase Troponin T Total Protein Albumin Albumin/Globulin Ratio - EKG Data -: EKG Interpreted by Me EKG shows normal: sinus rhythm, axis, intervals, QRS complexes, ST-T waves Rate: normal - EKG Data Interpretation: LVH 01/11/21 06:27 EKG obtained 1720 EKG interpreted by nv Rate 90 bpm normal axis normal intervals no ST signs ischemia positive LVH no ST elevation - Radiology Data Radiology results: report reviewed Patient Name: MICHELLE BLOUNT Gender: Female Date of : 1960 Referring Provider: LINDA, ED Organization: [facility] Accession Number: [id number] Requested Date: January 10, 2021 17:25 Report Status: Final Requested Procedure: 1 Procedure Description: XR chest routine 2V Modality: XR Findings Reporting MD: Tom Kee Dictation Time: January 10, 2021 17:02 Apprentice Carpenter: Not available Ob Scrub Tech Date: CHEST 2 VIEWS INDICATION / CLINICAL INFORMATION: CP/SOB. COMPARISON: 2017 FINDINGS: SUPPORT DEVICES: None. HEART / MEDIASTINUM: No significant abnormality. LUNGS / PLEURA: Mild bibasilar streaky opacities could represent atelectasis or developing infectious process. ADDITIONAL FINDINGS: No significant additional findings. Signer Name: Tom Kee MD Signed: 01/10/2021 5:02 PM Workstation Name: [id number] Patient Name: MICHELLE BLOUNT Gender: Female Date of : 1960 Referring Provider: TERRA MICHELE Organization: [facility] Accession Number: [id number] Requested Date: January 10, 2021 22:17 Report Status: Final Requested Procedure: 1 Procedure Description: CT angio chest Modality: CT Findings Reporting MD: Amilcar Fung Dictation Time: January 10, 2021 21:31 Apprentice Carpenter: Not available Ob Scrub Tech Date: CTA CHEST WITH CONTRAST INDICATION / CLINICAL INFORMATION: Pt complains of chest pain, SOB, elevated D- dimer, Hx of VTE. TECHNIQUE: Axial CT images were obtained through the chest after injection of 100 mL's of Omnipaque 350 IV contrast. 3 plane MIP and/or 3D reconstructions were produced. All CT scans at this location are performed using CT dose reduction for ALARA by means of automated exposure control. COMPARISON: 11/30/2017 FINDINGS: PULMONARY ARTERIES: No pulmonary emboli. THORACIC AORTA: No significant abnormality. HEART: No significant abnormality. CORONARY ARTERY CALCIFICATION: None. MEDIASTINUM / MARIELLA: No significant abnormality. PLEURA: No pleural effusion. No pneumothorax. LUNGS: No acute air space or interstitial disease. ADDITIONAL FINDINGS: There is a large cystic lesion emanating from the left thyroid entering into the mediastinum and displacing the trachea rightward. This cystic lesion is unchanged compared to 11/30/2017. UPPER ABDOMEN: No acute findings. SKELETAL STRUCTURES: Scattered degeneration. IMPRESSION: 1. No CT evidence for pulmonary embolism. 2. No acute findings. 3. Chronic findings as above. Signer Name: Amilcar Fung DO Signed: 01/10/2021 9:31 PM Workstation Name: [id number] - Medical Decision Making Chest pain: Acute NM ruled out with serial troponin values both negative. Pulmonary embolism and pneumonia ruled out with CT angiogram of the chest. Recommended outpatient COVID-19 testing. Patient has been aware of thyroid mass. I encouraged her to obtain primary care. Differential diagnosis includes GERD, pleurisy, PVC, chest wall pain, pleurisy recommended [id number] antiacid and Tylenol pain was fleeting pain spontaneously resolved Critical care attestation.: If time is entered above; I have spent that time in minutes in the direct care of this critically ill patient, excluding procedure time. ED Disposition Clinical Impression: GERD (gastroesophageal reflux disease), Thyroid mass Disposition: HOME / SELF CARE / HOMELESS Is pt being admited?: No Does the pt Need Aspirin: No Condition: Stable Instructions: Indigestion, [id number] Referrals: BRIGIDO GREY MD [Staff Physician] - 3-5 Days
[2021-01-11 07:01] VITALS: BP 132/82
--- NOTE | 2021-01-11 10:07 | Electrocardiograph Report ---
[facility] Test Date: 2021-01-10 Test Time: 17:20:50 Pat Name: MICHELLE BLOUNT Department: Room: Gender: F Vessel Engineer: JENNA : 1960 Requested By: ED DOC Order Number: [id number] Reading MD: Raghu Schroeder Measurements Intervals [place] Rate: 92 P: 34 WV: 163 QRS: -11 QRSD: 92 T: 90 QT: 349 QTc: 432 Interpretive Statements Sinus rhythm Probable left atrial enlargement Left ventricular hypertrophy [id number] No previous ECG available for comparison Electronically Signed On 01-11-2021 10:07:32 EDT by Raghu Schroeder
== END 2021-01-11 06:45 | disposition home or self-care (01) ==
LOC: ED 17:14
DX: K21.9 Gastro-esophageal reflux disease without esophagitis (principal); E04.9 Nontoxic goiter, unspecified; I10 Essential (primary) hypertension; D21.9 Benign neoplasm of connective and other soft tissue, unspecified; Z98.890 Other specified postprocedural states
CPT/HCPCS: 36415; 71046; 71275; 80053; 84484; 85025; 85379; 93005; 99284; Q9967